=== PATIENT | female | born 1935 | race Caucasian/White ===

== ENCOUNTER 2020-10-01 14:06 | Inpatient (IN) | payer MEDICARE, OTHER, SELFPAY ==
[2020-10-01] VITALS (8 sets, daily range): BP systolic 106–127; BP diastolic 16–79; PULSE 100–112; RESP 15–31; TEMP 36.2–37; O2SAT 90–95; BMI 22.2
--- NOTE | 2020-10-01 14:53 | ECG_ITS ---
Test Reason : SOB Blood Pressure : / mmHG Vent. Rate : 112 BPM Atrial Rate : 112 BPM P-R Int : 138 ms QRS Dur : 082 ms QT Int : 312 ms P-R-T Axes : 040 268 004 degrees QTc Int : 425 ms Sinus tachycardia with Premature supraventricular complexes Left atrial enlargement Right superior axis deviation Pulmonary disease pattern Abnormal ECG No previous ECGs available Referred By: Mihaela Sutherland Electronically Signed By:LILIA MARLOW MD
--- NOTE | 2020-10-01 14:53 | CT_ITS ---
EXAMINATION: CT CHEST WITHOUT CONTRAST CLINICAL INFORMATION: Cough COMPARISON: None TECHNIQUE: Multidetector volumetric CT imaging of the chest was done. Axial MIP volume rendering provided. Sagittal and coronal reformatted images were obtained. This CT examination was performed using dose optimization techniques as appropriate, variously including the following: *Automated exposure control *Adjustment of mA and/or kV according to patient size (this includes techniques or standardized protocols for targeted exams where dose is matched to indication/reason for exam; i.e. extremities or head) *Use of iterative reconstruction technique DLP: 274 mGy-cm FINDINGS: RN TELE: Low lung volumes lung disease. Curvature of the thoracic spine to the right. LUNGS: The lung volumes are low. There is evidence of peripheral interstitial lung disease with increased peripheral reticulation, traction bronchiolectasis, and honeycombing. This is seen diffusely throughout the lungs but greatest at the lung bases, right greater than left. There are multiple areas of denser peripheral consolidation with airspace disease and air bronchograms. It is uncertain whether this represents acute alveolitis represent superimposed pneumonia. There are also multiple nodular opacities seen, greatest in the right upper lobe. Largest right upper lobe areas measure 1.2 x 1.5 cm in the apical segment axial image 94 series 5 and 1.3 cm axial image 132 series 5. There is a nodular opacity in the posterior left lower lobe measuring 1.2 cm axial image 179 series 5. Again, it is uncertain whether this is related to acute alveolitis represent superimposed pneumonia or neoplasm. Chest CT follow-up in pulmonary consultation recommended. No endobronchial or endotracheal lesion is seen. MEDIASTINUM: The heart is slightly enlarged. There is mild coronary artery calcification. There is no pericardial effusion. The pulmonary arteries are prominent. The main pulmonary artery measures 3.5 cm questionable for pulmonary artery hypertension. The thoracic aorta is upper normal in size. There are small diffuse mediastinal lymph nodes. No enlarged lymph nodes are seen. PLEURA: There is no pleural effusion. No pleural mass or thickening. AXILLA: No lymphadenopathy. UPPER ABDOMEN: There is diverticulosis of the colon. The gallbladder appears contracted. OSSEOUS STRUCTURES: There are degenerative changes and scoliosis of the spine. CT/CT chest wo con IMPRESSION: Interstitial lung disease. Multiple areas of dense parenchymal consolidation with air bronchograms. It is uncertain whether this is related to acute alveolitis from interstitial lung disease or represents pneumonia. There are also multiple nodular opacities greatest in the right upper lobe and left lower lobe. Infectious and neoplastic process be considered. Chest CT follow up and pulmonary consultation recommended. Enlarged heart. Enlarged pulmonary arteries suggestive of pulmonary artery hypertension.
--- NOTE | 2020-10-01 14:56 | ED.SOB ---
HPI - SOB/Dyspnea General Chief Complaint: Dyspnea Stated Complaint: Difficulty Breathing Time Seen by Provider: 10/01/20 14:53 Source: patient, EMS and RN notes reviewed Mode of arrival: EMS Limitations: no limitations History of Present Illness MD elicited complaint: shortness of breath Pertinent past history: other (pulmonary fibrosis) Onset (ago): day(s) (3) Context: other (has been on doxycycline and levofloxacin for the past several days, taking 10mg prednisone, just had negative COVID in last couple of days) Timing: constant Severity: moderate Exacerbating factors: exertion, movement and coughing Relieving factors: oxygen, rest and bronchodilators Known history of: other (pulmonary fibrosis) Associated symptoms: cough, wheezing and sputum production Treatment prior to arrival: oxygen and bronchodilator Related Data Home Medications Medication Instructions Recorded Confirmed guaifenesin [Mucinex] 1,200 mg PO BID 10/01/20 10/01/20 lactobacillus combination no.4 3,000 mmu cells PO BID 10/01/20 10/01/20 [Probiotic] rzukliqdpklc-yfz-febz-FA-vit K 1 tab PO DAILY 10/01/20 10/01/20 [Multi-Day Plus Minerals] pantoprazole [Protonix] 20 mg PO DAILY 10/01/20 10/01/20 polyethylene glycol 3350 [Miralax] 17 g PO DAILY PRN 10/01/20 10/01/20 prednisone 10 mg PO DAILY 10/01/20 10/01/20 vit C,D-Rv-vorvf-lutein-zeaxan 1 tab PO BID 10/01/20 10/01/20 [PreserVision AREDS-2] Allergies Allergy/AdvReac Type Severity Reaction Status Date / Time Penicillins Allergy Rash Verified 10/01/20 14:47 Review of Systems Review of Systems: Constitutional : No Fever, No Chills ENT/Mouth : No sore throat, No Rhinorrhea, No Swallowing Difficulty Eyes: No Eye Pain, No Swelling, No Redness Cardiovascular : No Chest Pain, positive SOB, No Orthopnea, no Edema Respiratory : pos Cough, pos Sputum, No Wheezing, positive dyspnea Gastrointestinal : No Nausea, No Vomiting, No Diarrhea, No abdominal Pain, No Hematochezia, No Melena Genitourinary : No Dysuria, No Urinary Frequency, No Hematuria Musculoskeletal : No joint pain, No Myalgias Skin : No Skin Lesions, No rash Neuro : No Weakness, No Numbness, No Dizziness, No Headache Psych : No Anxiety/Panic, No Depression Heme/Lymph: No Bruising, No Lymphadenopathy Endocrine : No Polyuria, No Polydipsia All other systems reviewed and are negative [facility] Past Medical History Attestation statement: The following information was validated with the patient. Medical History Pneumonia Pulmonary fibrosis Social History Social History (Updated 10/01/20 @ 15:06 by Mihaela Sutherland DO) Alcohol intake: current Alcohol intake frequency: holidays/special occasions only Smoking Status: Never smoker Use of substances other than those prescribed or required for medical reasons: No Advance Directives: No Advance Directives Information Provided: Yes Physical Exam Vital Signs: Vital Signs: Last Vital Signs Temp 97.8 F 10/01/20 16:00 Pulse 112 H 10/01/20 16:00 Resp 24 H 10/01/20 16:00 BP 127/79 10/01/20 16:00 Pulse Ox 91 L 10/01/20 16:00 Body Mass Index 22.2 Appearance: Alert. Oriented X3. Mild acute distress. Eyes: Pupils equal, round and reactive to light. ENT: Pharynx normal. Neck: Normal inspection. Neck supple. CVS: tachycardic heart rate and rhythm. Pulses normal. Respiratory: Mild respiratory distress. Breath sounds decreased, rhonchi, faint end exp wheezes Abdomen: Soft and nontender. Skin: Skin warm and dry. Normal skin color. Normal skin turgor. Extremities: No lower extremity edema. No calf ttp Neuro: Oriented X 3. No motor deficit. No sensory deficit. Course Course Course Narrative: signed out to Dr. Jj pending workup and labs MDM - SOB/Dyspnea MDM Narrative Medical decision making narrative: 84 yo female pulmonary fibrosis here with worsening cough and dyspnea - has been on steroids/doxy/levofloxacin - sats 88% on 5L she is normally on 3L NC - will give neb, IV steroids, CXR, empiric antibiotics COVID test though negative just in past couple of days, anticipate admission given RR in 30s, increased O2 requirements. Lab Data Result diagrams: 10/01/20 15:37 10/01/20 15:37 Labs: Lab Results 10/01/20 10/01/20 Range/Units 15:37 15:37 WBC 9.8 (4.8-10.8) X10*3/uL RBC 4.85 (4.20-5.50) X10*6/uL Hgb 13.6 (12.0-16.0) g/dl Hct 43.9 (37-47) % MCV 90.5 (80-98) fL MCH 28.0 (27.0-33.0) pg MCHC 31.0 (31.0-35.0) g/dl RDW 14.4 (11.0-16.0) % Plt Count 334 (160-400) X10*3/uL MPV 9.7 (9.4-12.3) fL Immature Gran % (Auto) 0.6 H (0.0-0.4) % Neut % (Auto) 82.2 H (45-73) % Lymph % (Auto) 11.0 L (20-40) % [place] % (Auto) 5.0 (2-11) % Eos % (Auto) 0.6 (0-4) % Baso % (Auto) 0.6 (0-2) % Lymph # (Auto) 1.1 L (1.2-4.9) X10*3/uL [place] # (Auto) 0.5 (0.1-1.2) X10*3/uL Eos # (Auto) 0.1 (0.0-0.4) X10*3/uL Baso # (Auto) 0.1 (0.0-0.2) X10*3/uL Abs Immat Gran (auto) 0.06 H (0.00-0.03) X10*3/uL Absolute Neuts (auto) 8.1 (2.0-8.3) X10*3/uL Absolute Nucleated RBC 0.000 (0.0-0.012) X10*3/uL Nucleated RBC % (auto) 0.0 (0.0-0.2) /100WBC PT 11.5 (10.8-13.0) SEC INR 1.0 (0.9-1.1) APTT 39.0 H (24.1-38.0) SEC ECG Data Attestation: I personally reviewed and interpreted this ECG as follows: ECG interpretation date: 10/01/20 ECG interpretation time: 15:24 Interpretation: Rate: 112 Rhythm: sinus tachycardia Onia: left Normal POLLY. Normal QRS complex. ST T wave : no MERLY, inverted III, aVF qTC: normal prior studies: no acute ischemia The study has been interpreted contemporaneously by me. . Discharge Plan Discharge Clinical Impression: Pulmonary fibrosis Pneumonia Qualifiers: Pneumonia type: due to unspecified organism Laterality: bilateral Lung location: unspecified part of lung Qualified Code(s): J18.9 - Pneumonia, unspecified organism Patient Disposition: Admitted As Inpatient
[2020-10-01] MEDS: Albuterol Sulfate (0.083%) 2.5 MG/3 ML VIAL.NEB 5 MG INHALE (15:31)
[2020-10-01 15:48] LABS: MANUAL DIFF FLAG NO
[2020-10-01 15:49] LABS: Basophils Absolute Auto 0.1 X10*3/uL (0.0-0.2); Basophils Percent Auto 0.6 % (0-2); Eosinophils Absolute Auto 0.1 X10*3/uL (0.0-0.4); Eosinophils Percent Auto 0.6 % (0-4); Hematocrit 43.9 % (37-47); Hemoglobin 13.6 g/dl (12.0-16.0); Imm Gran Abs Auto 0.06 X10*3/uL (0.00-0.03); Imm Gran Pct Auto 0.6 % (0.0-0.4); Lymphocytes Absolute Auto 1.1 X10*3/uL (1.2-4.9); Mean Corpuscular Volume 90.5 fL (80-98); Mean Platelet Volume 9.7 fL (9.4-12.3); Monocytes Absolute Auto 0.5 X10*3/uL (0.1-1.2); Neutrophils Absolute Auto 8.1 X10*3/uL (2.0-8.3); Neutrophils Percent Auto 82.2 % (45-73); Platelet Count 334 X10*3/uL (160-400); Red Blood Count 4.85 X10*6/uL (4.20-5.50); Red Cell Distribution Width 14.4 % (11.0-16.0); White Blood Count 9.8 X10*3/uL (4.8-10.8)
[2020-10-01] MEDS: methylPREDNISolone Sod Succ/PF 125 MG/2 ML VIAL 60 MG IVPUSH (15:49)
[2020-10-01] MEDS: cefEPime HCl 1 GM in 0.9 % Sodium Chloride 50 ML IV (16:00)
[2020-10-01 16:06] LABS: Prothrombin Time 11.5 SEC (10.8-13.0)
--- NOTE | 2020-10-01 16:14 | PC.NURSE ---
Pt with fine crackles and wheezing on arrival to ED. Hx pulmonary fibrosis on 4liters at home. Sats in low 90s. Sats noted to drop with coughing episodes but return to above 90 when restful. Pt recd updraft inhaler with relief. CT and labs obtained. Awaiting results at this time. Pt likely to be admitted per MD. The patient was made aware and her medication list sent to pharmacy.
[2020-10-01 16:15] LABS: Lactic Acid 1.6 mmol/L (0.5-2.0)
[2020-10-01 16:23] LABS: Alanine Aminotransferase 172 U/L (0-31); Albumin Level 3.5 g/dL (3.5-5.0); Alkaline Phosphatase 115 U/L (39-117); Anion Gap 13 (12-20); Aspartate Amino Transferase 40 U/L (5-31); Bilirubin Direct 0.2 mg/dL (0.0-0.5); Bilirubin Total 0.3 mg/dL (0.0-1.0); Blood Urea Nitrogen 16 mg/dL (9-16); Calcium 8.6 mg/dL (8.4-10.2); Carbon Dioxide 33 mmol/L (22-29); Chloride 95 mmol/L (96-108); Creatinine Clr Calc Pharmacy 63.8; Estimated Glomerular Filt Rate > 60; Glucose Random 214 mg/dL (60-115); Lactate Dehydrogenase 218 U/L (122-220); Lipase 37 U/L (8-78); Magnesium 1.9 mg/dL (1.6-2.6); Potassium 4.5 mmol/l (3.3-5.1); Sodium 136 mmol/L (135-145)
[2020-10-01 16:25] LABS: B Type Natriuretic Peptide 282 pg/mL (<100); Troponin-I High Sensitivity 12.7 ng/L (<3.5-17.0)
[2020-10-01 16:32] LABS: Influenza A PCR NEGATIVE (Negative); Influenza B PCR NEGATIVE (Negative); Resp Syncy Virus RNA Qual PCR NEGATIVE (Negative); SARS COV2 PCR INHOUSE NEGATIVE (Negative)
[2020-10-01] MEDS: Doxycycline Hyclate 100 MG in 0.9 % Sodium Chloride 250 ML 166.67 MG IV (16:32)
[2020-10-01 16:40] LABS: Ferritin 56 ng/mL (10-250)
[2020-10-01 16:45] LABS: Procalcitonin 0.03 ng/mL
--- NOTE | 2020-10-01 18:36 | PC.NURSE ---
see at bedside about 45 minutes ago. Awaiting admission order. notified at this time.
--- NOTE | 2020-10-01 19:17 | PC.NURSE ---
report taken from racquel donaldson. buttocks reddend upon skin assessment. barrier cream applied. position changed. daughter racquel updated on condition. phone number changed to accurately reflect current phone number in chart. awaiting admission orders at this time.
--- NOTE | 2020-10-01 21:07 | PC.NURSE ---
attempted to give report. rn unavailable and in room.
[2020-10-02] MEDS: Enoxaparin Sodium 40 MG/0.4 ML SYRINGE SUBCUT ×2 (00:11→23:29)
[2020-10-02] MEDS: cefTRIAXone sodium 1 GM in 0.9 % Sodium Chloride 50 ML IV ×2 (00:12→23:29)
[2020-10-02] MEDS: Azithromycin 500 MG in 0.9 % Sodium Chloride 250 ML 125 MG IV (00:12)
[2020-10-02] MEDS: Gabapentin 100 MG CAPSULE PO ×2 (00:12→20:21)
[2020-10-02] MEDS: Melatonin 3 MG TABLET PO ×2 (00:12→20:23)
[2020-10-02] MEDS: 0.9 % Sodium Chloride Flush 3 ML SYRINGE IVFLUSH ×2 (00:13→17:23)
[2020-10-02 03:47] VITALS: BP 103/56; PULSE 88; RESP 18; TEMP 36.4; O2SAT 96
[2020-10-02 04:35] LABS: Basophils Absolute Auto 0.1 X10*3/uL (0.0-0.2); Basophils Percent Auto 0.6 % (0-2); Eosinophils Percent Auto 0.1 % (0-4); Hematocrit 39.6 % (37-47); Hemoglobin 12.4 g/dl (12.0-16.0); Imm Gran Abs Auto 0.06 X10*3/uL (0.00-0.03); Imm Gran Pct Auto 0.7 % (0.0-0.4); Lymphocytes Absolute Auto 1.4 X10*3/uL (1.2-4.9); Lymphocytes Percent Auto 15.3 % (20-40); Mean Corpuscular HGB Conc 31.3 g/dl (31.0-35.0); Mean Corpuscular Hemoglobin 28.6 pg (27.0-33.0); Mean Corpuscular Volume 91.2 fL (80-98); Mean Platelet Volume 9.6 fL (9.4-12.3); Monocytes Absolute Auto 0.8 X10*3/uL (0.1-1.2); Monocytes Percent Auto 8.4 % (2-11); Neutrophils Absolute Auto 6.8 X10*3/uL (2.0-8.3); Neutrophils Percent Auto 74.9 % (45-73); Platelet Count 282 X10*3/uL (160-400); Red Blood Count 4.34 X10*6/uL (4.20-5.50); Red Cell Distribution Width 14.2 % (11.0-16.0); White Blood Count 9.1 X10*3/uL (4.8-10.8)
[2020-10-02 04:36] LABS: MANUAL DIFF FLAG NO
[2020-10-02 04:58] LABS: Anion Gap 12 (12-20); Blood Urea Nitrogen 17 mg/dL (9-16); Calcium 8.3 mg/dL (8.4-10.2); Carbon Dioxide 29 mmol/L (22-29); Chloride 101 mmol/L (96-108); Creatinine Clr Calc Pharmacy 75.3; Estimated Glomerular Filt Rate > 60; Glucose Random 114 mg/dL (60-115); Sodium 137 mmol/L (135-145)
--- NOTE | 2020-10-02 06:12 | P.HPHOSP_ITS ---
History of Present Illness Date of Service: 10/01/20 Chief Complaint: Shortness of breath This an 84-year-old female with a past medical history of I will D on baseline 4 L of oxygen who presents to the hospital from [facility] with complaints of sudden-onset shortness of breath. Patient reports some cough with no increased sputum production from her baseline, has not had any fever or chills, no abdominal pain nausea or vomiting, no diarrhea constipation. She denies any other symptoms including no urinary symptoms weakness numbness or tingling. No lower extremity edema. No orthopnea or PND. On arrival to the ED found to be desatting to the mid 80s on minimal activity, placed on 6 L of oxygen currently satting at 92-96%. Has tachycardia with a heart rate of 108 and tachypneic with a respiratory rate of 31 Labs are significant for WBC count of 9.8, hemoglobin of 12.4, hematocrit of 39.6, sodium of 137, potassium 5.0, BUN of 17 with creatinine of 0.55, BNP of 282, negative COVID-19, Chest CT shows interstitial lung disease with multiple areas of dense parenchymal consolidation with air bronchogram. And multiple nodular opacities which could be infectious versus neoplastic and will need follow-up CT Past medical history: Interstitial lung disease/fibrosis Surgical history: eye surgery Family history: Was adopted Social history: Comes from [facility], denies any tobacco alcohol or illicit drugs Review of Systems Review of Systems: Yes all other systems are reviewed and are negative [facility] Medical History Pneumonia Pulmonary fibrosis Social History (Updated 10/01/20 @ 15:06 by Mihaela Sutherland DO) Household Members: None Housing: [facility] Do you presently have visiting nurse or other home services: No Alcohol intake: current Alcohol intake frequency: holidays/special occasions only Smoking Status: Never smoker Use of substances other than those prescribed or required for medical reasons: No Have you been hit, kicked, punched, or otherwise hurt by someone within the past year? If so, by whom?: No Do you feel safe in your current relationship?: No Current Relationship Is there a partner from a previous relationship who is making you feel unsafe now?: No Are you made to feel afraid or neglected: No Advance Directives: No Advance Directives Information Provided: Yes Do you have thoughts of harming others: None Do you have a plan to hurt others: No Plan Recently lost weight without trying: No Meds Allergies Allergy/AdvReac Type Severity Reaction Status Date / Time Penicillins Allergy Rash Verified 10/01/20 14:47 Home Medications Medication Instructions Recorded Confirmed Type brimonidine [Alphagan P] 1 drp OPHTHALMIC-RIGHT BID 10/01/20 10/01/20 History difluprednate [Durezol] 1 drp OPHTHALMIC-LEFT QID 10/01/20 10/01/20 History doxycycline hyclate 100 mg PO BID 10/01/20 10/01/20 History fluticasone propionate [Flonase] 1 spray INTRANASAL DAILY 10/01/20 10/01/20 History gabapentin 100 mg PO BEDTIME 10/01/20 10/01/20 History guaifenesin [Mucinex] 1,200 mg PO BID 10/01/20 10/01/20 History lactobacillus combination no.4 3,000 mmu cells PO BID 10/01/20 10/01/20 History [Probiotic] melatonin 3 mg PO BEDTIME 10/01/20 10/01/20 History melatonin 3 mg PO BEDTIME PRN 10/01/20 10/01/20 History mirtazapine [Remeron] 30 mg PO DAILY 10/01/20 10/01/20 History qdtaatzefjbq-mny-qmgo-FA-vit K 1 tab PO DAILY 10/01/20 10/01/20 History [Multi-Day Plus Minerals] netarsudil-latanoprost [Rocklatan] 1 drp OPHTHALMIC-RIGHT BEDTIME 10/01/20 10/01/20 History pantoprazole [Protonix] 20 mg PO DAILY 10/01/20 10/01/20 History polyethylene glycol 3350 [Miralax] 17 g PO DAILY PRN 10/01/20 10/01/20 History prednisone 10 mg PO DAILY 10/01/20 10/01/20 History simethicone 80 mg PO BID PRN 10/01/20 10/01/20 History timolol 1 drp OPHTHALMIC-RIGHT BID 10/01/20 10/01/20 History trazodone 50 mg PO BEDTIME PRN 10/01/20 10/01/20 History vit C,H-Gd-rvdkz-lutein-zeaxan 1 tab PO BID 10/01/20 10/01/20 History [PreserVision AREDS-2] Physical Exam Vital Signs and Narrative: Vital Signs: Last Vital Signs Temp 97.5 F 10/02/20 03:47 Pulse 88 10/02/20 03:47 Resp 18 10/02/20 03:47 BP 103/56 L 10/02/20 03:47 Pulse Ox 96 10/02/20 03:47 Body Mass Index 22.2 Const: General: cooperative and no acute distress Orientation/consciousness: patient oriented x3 Eyes: General: appearance normal, both eyes and all related structures Resp: Effort & Inspection: normal respiratory effort and able to speak in complete sentences Auscultation: crackles Cardio: Rate: regular rate Rhythm: regular rhythm GI: Palpation (GI): Soft to palpation Auscultation: normal bowel sounds Skin: General skin exam: no rashes or lesions noted Neuro: General: patient oriented x3 Cognition (Neuro): normal cognition Extrem: General: Yes normal to inspection and Yes no pedal edema Results Labs CBC and Chem 7: 10/02/20 04:18 10/02/20 04:18 Labs: Laboratory Results - last 24 hr 10/01/20 10/01/20 10/01/20 15:37 15:37 15:37 MCV 90.5 MCH 28.0 MCHC 31.0 RDW 14.4 Plt Count 334 MPV 9.7 Immature Gran % (Auto) 0.6 H Neut % (Auto) 82.2 H Lymph % (Auto) 11.0 L [place] % (Auto) 5.0 Eos % (Auto) 0.6 Baso % (Auto) 0.6 Lymph # (Auto) 1.1 L [place] # (Auto) 0.5 Eos # (Auto) 0.1 Baso # (Auto) 0.1 Abs Immat Gran (auto) 0.06 H Absolute Neuts (auto) 8.1 Absolute Nucleated RBC 0.000 Nucleated RBC % (auto) 0.0 PT INR APTT Anion Gap 13 Estim Creat Clear Calc 63.8 Estimated GFR > 60 Random Glucose 214 H Lactic Acid 1.6 Calcium 8.6 Magnesium 1.9 Ferritin 56 Total Bilirubin 0.3 Direct Bilirubin 0.2 AST 40 H ALT 172 H Alkaline Phosphatase 115 Lactate Dehydrogenase 218 Troponin I High Sens B-Natriuretic Peptide Total Protein 6.0 L Albumin 3.5 Lipase 37 Procalcitonin Coronavirus (PCR) Influenza Type A (PCR) Influenza Type B (PCR) RSV RNA Qual (PCR) 10/01/20 10/01/20 10/01/20 15:37 15:37 15:37 MCV MCH MCHC RDW Plt Count MPV Immature Gran % (Auto) Neut % (Auto) Lymph % (Auto) [place] % (Auto) Eos % (Auto) Baso % (Auto) Lymph # (Auto) [place] # (Auto) Eos # (Auto) Baso # (Auto) Abs Immat Gran (auto) Absolute Neuts (auto) Absolute Nucleated RBC Nucleated RBC % (auto) PT 11.5 INR 1.0 APTT 39.0 H Anion Gap Estim Creat Clear Calc Estimated GFR Random Glucose Lactic Acid Calcium Magnesium Ferritin Total Bilirubin Direct Bilirubin AST ALT Alkaline Phosphatase Lactate Dehydrogenase Troponin I High Sens 12.7 B-Natriuretic Peptide 282 H Total Protein Albumin Lipase Procalcitonin 0.03 Coronavirus (PCR) Influenza Type A (PCR) Influenza Type B (PCR) RSV RNA Qual (PCR) 10/01/20 10/02/20 10/02/20 Unknown 04:18 04:18 MCV 91.2 MCH 28.6 MCHC 31.3 RDW 14.2 Plt Count 282 MPV 9.6 Immature Gran % (Auto) 0.7 H Neut % (Auto) 74.9 H Lymph % (Auto) 15.3 L [place] % (Auto) 8.4 Eos % (Auto) 0.1 Baso % (Auto) 0.6 Lymph # (Auto) 1.4 [place] # (Auto) 0.8 Eos # (Auto) 0.0 Baso # (Auto) 0.1 Abs Immat Gran (auto) 0.06 H Absolute Neuts (auto) 6.8 Absolute Nucleated RBC 0.000 Nucleated RBC % (auto) 0.0 PT INR APTT Anion Gap 12 Estim Creat Clear Calc 75.3 Estimated GFR > 60 Random Glucose 114 D Lactic Acid Calcium 8.3 L Magnesium Ferritin Total Bilirubin Direct Bilirubin AST ALT Alkaline Phosphatase Lactate Dehydrogenase Troponin I High Sens B-Natriuretic Peptide Total Protein Albumin Lipase Procalcitonin Coronavirus (PCR) NEGATIVE Influenza Type A (PCR) NEGATIVE Influenza Type B (PCR) NEGATIVE RSV RNA Qual (PCR) NEGATIVE Imaging Radiologist's Impressions: Impressions Chest CT 10/01/20 14:53 IMPRESSION: Interstitial lung disease. Multiple areas of dense parenchymal consolidation with air bronchograms. It is uncertain whether this is related to acute alveolitis from interstitial lung disease or represents pneumonia. There are also multiple nodular opacities greatest in the right upper lobe and left lower lobe. Infectious and neoplastic process be considered. Chest CT follow up and pulmonary consultation recommended. Enlarged heart. Enlarged pulmonary arteries suggestive of pulmonary artery hypertension. Assessment and Plan (1) Respiratory failure with hypoxia: Status: Acute (2) Pneumonia: Qualifiers: Laterality: bilateral Lung location: unspecified part of lung Pneumonia type: due to unspecified organism Qualified Code(s): J18.9 - Pneumonia, unspecified organism Status: Acute (3) Pulmonary fibrosis: Status: Acute This is a 84-year-old female with past medical history of LD who presents to the hospital with complaints of acute on chronic shortness of breath # acute on chronic hypoxic respiratory failure - most likely secondary to community-acquired pneumonia - patient on baseline 4 L of oxygen not requiring 6 L to maintain oxygen above 91% - chest CT as above Plan: - negative for COVID-19, influenza and RSV - titrate down O2 to baseline as tolerated # community-acquired pneumonia - Chest CT showing multiple infiltrates w hx of underlying lung ds Plan: - IV antibiotics - follow blood cultures - Legionella and strep urine antigens # Pulmonary fiborsis DVT prophylaxis: Lovenox
[2020-10-02 07:31] VITALS: BP 120/61; PULSE 87; RESP 18; TEMP 36.6; O2SAT 93
[2020-10-02] MEDS: predniSONE 10 MG TABLET PO (08:39)
[2020-10-02] MEDS: timoloL maleate 0.5 % Oph Sol 5 ML DRBTL 1 DROP EYE-BOTH ×2 (08:40→20:23)
[2020-10-02] MEDS: Fluticasone Propionate Nasal 16 GM SPRAY 1 SPRAY NOSTRIL-B (08:40)
--- NOTE | 2020-10-02 10:33 | PC.NURSE ---
Plan for pt to see associate merchandise planner. Pt aware of daily plan.
--- NOTE | 2020-10-02 11:01 | MHC.CM.PN ---
Addendum entered by Lyndsey Bauer 10/02/20 11:06: IMM addressed. Original Note: CM met with patient at the bedside who reports she amb with a walker and resides at [facility]. Patient states she has a HCP kalpana Sanders [phone], copy requested. Discussed discharge plan, patient will return to [facility] via BLS transport. CM will continue to follow for discharge needs.
[2020-10-02] MEDS: Simethicone 80 MG TAB.CHEW PO (11:57)
[2020-10-02 12:00] VITALS: BP 152/86; PULSE 102; RESP 20; TEMP 36.8; O2SAT 90
--- NOTE | 2020-10-02 13:41 | PM.EVENT ---
Event Note Date of Service: 10/02/20 Event Note: I HAVE SEEN THIS PATIENT FOR PULMONARY CONSULTATION. HER HISTORY AND CURRENT EVENTS ARE REVIEWED. LAB AND IMAGING REVIEWED. COVID-19 TEST IS NOTED TO BE NEGATIVE. COMPLETE NOTE DICTATED. A: CHRONIC INTERSTITIAL LUNG DISEASE/PULMONARY FIBROSIS. ACUTE PNEUMONIA VS SUPER ADDED INTERSTITIAL PNEUMONITIS. ACUTE ON CHRONIC RESPIRATORY FAILURE WITH INCREASED HYPOXEMIA. p: START ON SOLU-MEDROL 60 MG IV B.I.D. FOR THE NEXT FEW DAYS AND THEN WOULD BE CHANGED TO ORAL PREDNISONE. COURSE OF ANTIBIOTICS, EMPIRICALLY, WITH AZITHROMYCIN AND CEFTRIAXONE IS FINE . O2 SUPPLEMENTATION BY NASAL CANNULA TO MAINTAIN O2 SAT ABOVE 90%. IF NEEDED MAY ADD OXYMIZER.
--- NOTE | 2020-10-02 15:53 | CONS_ITS ---
DATE OF SERVICE: 10/02/2020 This patient is 84 years old very pleasant female who was admitted from [facility] rehab facility with chief complaint of increased shortness of breath with almost sudden increase on 10/01. She had no fever or chills. She had her usual cough, nonproductive. She was on oxygen 4 L/minute as usual. In the emergency room, she was noted to be desaturating down into mid 80s even with oxygen of 6 L/minute. She was tachycardiac and tachypneic. Laboratory data revealed that her white cell count was normal. BUN and creatinine normal. BNP 282, and her rapid COVID-[address] scan of the chest was grossly abnormal. The patient is admitted for further care in the hospital. PAST MEDICAL HISTORY: Reviewed. She has long-standing history of interstitial lung disease/pulmonary fibrosis. She has been on maintenance dose of prednisone at 10 mg a day and she is also on oxygen 4 L/minute continuously. The patient has been followed up by a director of rooms at [facility]. REVIEW OF SYSTEMS: As noted in the history and physical. Her main problem is increased shortness of breath and marked generalized weakness. She denies any chest pain, fever, or chills. Her appetite is poor, but no nausea or vomiting. SOCIAL HISTORY: History of smoking, the patient never smoked. 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 She is in a long-term facility, [facility] for the past few years. PHYSICAL EXAMINATION: GENERAL: An 84-year-old female of a thin build, conscious, alert, and well orientated and she did converse with some obvious dyspnea. THROAT: Benign. NECK: No JVD. Trachea midline. No lymphadenopathy. CHEST: Symmetrical. Percussion note is resonant. Breath sounds are harsh on both sides and she has inspiratory as well as expiratory crepitations over the upper as well as lower chest. CARDIAC: Sounds are muffled by the respiratory sounds, but no murmurs or gallops. ABDOMEN: Flat, soft, and nontender. EXTREMITIES: No edema or varicosities. CT scan of the chest is reviewed and it shows extensive bilateral interstitial lung disease with dense opacities consistent with consolidation and air bronchogram. Currently, her O2 saturation on 4 L/minute is 96. CLINICAL IMPRESSION: 1. Bilateral extensive pneumonitis, acute on chronic. 2. Chronic interstitial lung disease/pulmonary fibrosis. 3. Possibility of an acute infectious disease cannot be ruled out, but seem to be less likely. 4. As noted above, her COVID test is negative. RECOMMENDATION: 1. Agree with the current treatment and I think she should have a short course of IV Solu-Medrol at 60 mg IV q.12 hours. Continue the combination of Rocephin and azithromycin for the time being. 2. Oxygen supplementation as needed. 3. We will repeat her chest x-ray in a few days for followup. 4. Long-term goal is going to be oxygenate her well and keep the interstitial lung disease under control with oral prednisone. Thank you very much for asking me to see this patient. Sincerely, MD CATALINA Diaz/MODL / [id number]
[2020-10-02 16:00] VITALS: BP 141/97; PULSE 99; RESP 18; TEMP 36.4; O2SAT 94
--- NOTE | 2020-10-02 16:18 | P.PNIM_ITS ---
Subjective Subjective Date of Service: 10/03/20 Interval History: patient seen and examined at bedside patient was reporting shortness of breath Review of Systems Constitutional : No Fever, No Chills ENT/Mouth : No sore throat, No Rhinorrhea, No Swallowing Difficulty Eyes: No Eye Pain, No Swelling, No Redness Cardiovascular : No Chest Pain, positive SOB, No Orthopnea, no Edema Respiratory : pos Cough, pos Sputum, No Wheezing, positive dyspnea Gastrointestinal : No Nausea, No Vomiting, No Diarrhea, No abdominal Pain, No Hematochezia, No Melena Genitourinary : No Dysuria, No Urinary Frequency, No Hematuria Musculoskeletal : No joint pain, No Myalgias Skin : No Skin Lesions, No rash Neuro : No Weakness, No Numbness, No Dizziness, No Headache Psych : No Anxiety/Panic, No Depression Heme/Lymph: No Bruising, No Lymphadenopathy Endocrine : No Polyuria, No Polydipsia All other systems reviewed and are negative Constitutional Constitutional: Reports weakness Cardiovascular Cardiovascular: Reports dyspnea Respiratory Respiratory: Reports cough and Reports dyspnea Neurologic Neurologic: Reports weakness Physical Exam Vital Signs: Vital Signs: Last Vital Signs Temp 97.6 F 10/02/20 16:00 Pulse 99 10/02/20 16:00 Resp 18 10/02/20 16:00 BP 141/97 H 10/02/20 16:00 Pulse Ox 94 10/02/20 16:00 Body Mass Index 22.2 Const: General: cooperative and no acute distress Orientation/consciousness : patient oriented x3 Eyes: General: appearance normal, both eyes and all related structures Resp: Effort & Inspection: normal respiratory effort and able to speak in complete sentences Auscultation: crackles Cardio: Rate: regular rate Rhythm: regular rhythm GI: Palpation (GI): Soft to palpation Auscultation: normal bowel sounds Skin: General skin exam: no rashes or lesions noted Neuro: General: patient oriented x3 Cognition (Neuro): normal cognition Extrem: General: Yes normal to inspection and Yes no pedal edema Objective Data Current Medications Generic Name Dose Route Start Last Admin Trade Name Freq PRN Reason Stop Dose Admin Acetaminophen 650 mg 10/01/20 22:03 Acetaminophen 325 Mg Tablet PO Q6H PRN Pain, Mild (Pain Scale 1-3) Docusate Sodium 100 mg 10/01/20 22:03 Docusate Sodium 100 Mg Capsule PO DAILY PRN Constipation Enoxaparin Sodium 40 mg 10/01/20 23:00 10/02/20 00:11 Enoxaparin Sodium 40 Mg/0.4 Ml Syringe SUBCUT 40 mg Q24H LAURI Administration Fluticasone Propionate 1 spray 10/02/20 09:00 10/02/20 08:40 Fluticasone Propionate Nasal 16 Gm [place] NOSTRIL-B 1 spray DAILY LAURI Administration Gabapentin 100 mg 10/01/20 22:03 10/02/20 00:12 Gabapentin 100 Mg Capsule PO 100 mg BEDTIME LAURI Administration Ceftriaxone Sodium 1 gm/ 50 mls @ 100 mls/hr 10/01/20 22:03 10/02/20 01:03 Sodium Chloride IV Infused Q24H LAURI Infusion Azithromycin 500 mg/ Sodium 250 mls @ 125 mls/hr 10/01/20 23:00 10/02/20 02:18 Chloride IV Infused Q24H LAURI Infusion Melatonin 3 mg 10/01/20 22:03 Melatonin 3 Mg Tablet PO BEDTIME PRN IF FIRST DOSE NOT EFFECTIVE Melatonin 3 mg 10/01/20 22:03 10/02/20 00:12 Melatonin 3 Mg Tablet PO 3 mg BEDTIME LAURI Administration Mirtazapine 30 mg 10/02/20 21:00 Mirtazapine 30 Mg Tablet PO BEDTIME LAURI Non-Formulary Medication 1 drop 10/01/20 22:03 Brimonidine [Alphagan P] EYE-RIGHT BID [facility] Non-Formulary Medication 1 drop 10/01/20 22:03 Difluprednate [Durezol] EYE-LEFT QID [facility] Non-Formulary Medication 1 drop 10/01/20 22:03 Netarsudil-Latanoprost [Rocklatan] EYE-RIGHT BEDTIME LAURI Omeprazole 20 mg 10/02/20 06:30 10/02/20 05:36 Omeprazole 20 Mg Capsule.Dr PO Not Given DAILY@0630 [facility] Ondansetron HCl 4 mg 10/01/20 22:03 Ondansetron Hcl 4 Mg/2 Ml Vial IVPUSH Q8H PRN Nausea and Vomiting Pharmacy Consult 1 each 10/01/20 14:53 Consult Rx Perform Med Rec MISCELLANE ONCE PRN Consult order Polyethylene Glycol 17 gm 10/01/20 22:03 Polyethylene Glycol 3350 17 Gm Powd.Pack PO DAILY PRN Constipation Prednisone 10 mg 10/02/20 09:00 10/02/20 08:39 Prednisone 10 Mg Tablet PO 10 mg DAILY LAURI Administration Simethicone 80 mg 10/01/20 22:12 10/02/20 11:57 Simethicone 80 Mg Tab.Chew PO 80 mg BID PRN Administration GI UPSET Sodium Chloride 3 ml 10/02/20 00:00 10/02/20 07:57 0.9 % Sodium Chloride Flush 3 Ml Syringe IVFLUSH Not Given QSHIFT LAURI Timolol Maleate 1 drop 10/02/20 09:00 10/02/20 08:40 Timolol Maleate 0.5 % Oph Gregoria 5 Ml Drbtl EYE-BOTH 1 drop BID LAURI Administration Trazodone HCl 50 mg 10/01/20 22:03 Trazodone Hcl 50 Mg Tablet PO BEDTIME PRN IF MELATONIN NOT EFFECTIVE Labs CBC & Chem 7: 10/02/20 04:18 10/02/20 04:18 Assessment and Plan (1) Respiratory failure with hypoxia: Problem details: Increased Hypoxemia, now improving, cont . O2 2l/mt Status: Acute (2) Pneumonia: Problem details: Questionable , acute pneumonia . Cont. IV Zithromax and Rocephin . Status: Acute (3) Pulmonary fibrosis: Problem details: Chronic , with Acute superadded pneumonitis cont. iv solumedrol for one more day , then switch to oral prednisone Status: Acute Assessment and Plan: This is a 84-year-old female with past medical history of LD who presents to the hospital with complaints of acute on chronic shortness of breath acute on chronic hypoxic respiratory failure - most likely secondary to community-acquired pneumonia with Pulmonary fiborsis continue oxygen supplementation - negative for COVID-19, influenza and RSV community-acquired pneumonia - Chest CT showing multiple infiltrates w hx of underlying pulmonary fibrosis continue IV antibiotics - follow blood cultures seen by pulmonology recommended starting IV steroids given worsen for of pulmonary fibrosis DVT prophylaxis: Lovenox
[2020-10-02] MEDS: methylPREDNISolone Sod Succ/PF 125 MG/2 ML VIAL 60 MG IVPUSH (17:24)
[2020-10-02 19:19] VITALS: BP 119/67; PULSE 110; RESP 20; TEMP 36.6; O2SAT 91
[2020-10-02] MEDS: Mirtazapine 30 MG TABLET PO (23:29)
[2020-10-02] MEDS: Azithromycin 500 MG in 0.9 % Sodium Chloride 250 ML 250 MG IV (23:30)
[2020-10-03] VITALS (7 sets, daily range): BP systolic 97–161; BP diastolic 51–103; PULSE 87–116; RESP 18–20; TEMP 36.2–37.1; O2SAT 91–95
[2020-10-03] MEDS: 0.9 % Sodium Chloride Flush 3 ML SYRINGE IVFLUSH ×4 (01:12→21:39)
[2020-10-03] MEDS: Acetaminophen 325 MG TABLET 650 MG PO (01:25)
[2020-10-03] MEDS: Melatonin 3 MG TABLET PO ×2 (01:25→21:38)
[2020-10-03] MEDS: methylPREDNISolone Sod Succ/PF 125 MG/2 ML VIAL 60 MG IVPUSH ×2 (06:42→15:49)
[2020-10-03] MEDS: Omeprazole 20 MG CAPSULE.DR PO (06:43)
[2020-10-03] MEDS: timoloL maleate 0.5 % Oph Sol 5 ML DRBTL 1 DROP EYE-BOTH ×2 (09:39→21:39)
[2020-10-03] MEDS: Fluticasone Propionate Nasal 16 GM SPRAY 1 SPRAY NOSTRIL-B ×3 (09:39→21:38)
--- NOTE | 2020-10-03 12:23 | PM.PNPUL ---
Subjective Subjective Date of Service: 10/03/20 Principal diagnosis: Acute on Chronic ILD / Resp. failure Interval history: Patient is quite the alert, denies any respiratory distress, remains afebrile. Oxygenating well at 4 L/minute. Denies any specific complaints at this time Objective Data Labs CBC & Chem 7: 10/02/20 04:18 10/02/20 04:18 Microbiology Microbiology Results: Microbiology 10/01/20 15:53 Blood - Venous Blood Culture - Preliminary No growth after 24 hours. 10/01/20 15:54 Blood - Venous Blood Culture - Preliminary No growth after 24 hours. Review of Systems Review of Systems Yes all other systems are reviewed and are negative Constitutional: Reports weakness Cardiovascular: Reports dyspnea Respiratory: Reports cough and Reports dyspnea Reports weakness Physical Exam Vital Signs: Vital Signs: Last Vital Signs Temp 98.6 F 10/03/20 11:24 Pulse 91 10/03/20 11:24 Resp 18 10/03/20 11:24 BP 115/81 10/03/20 11:24 Pulse Ox 95 10/03/20 11:24 Body Mass Index 22.2 Const: General: comfortable, no acute distress and acute distress HENMT: Head: Yes normal to inspection General nose exam: Normal external nose present, Normal nares present and No nasal polyps present Mouth: Normal oral and palatal mucosa present Eyes: General: appearance normal, both eyes and all related structures Neck: Neck: Yes no lymphadenopathy, Yes trachea midline and Yes no JVD Chest: Chest palpation & inspection: normal inspection of the chest and normal palpation of entire chest wall Resp: Auscultation: crackles (Bilateral crackles, insp. and expiratory ) Cardio: Jugular venous distension: no JVD Rate: regular rate Heart sounds: no gallops and no murmurs Assessment and Plan Assessment and plan (1) Pulmonary fibrosis: Problem details: Chronic , with Acute superadded pneumonitis cont. iv solumedrol for one more day , then switch to oral prednisone Status: Acute (2) Respiratory failure with hypoxia: Problem details: Increased Hypoxemia, now improving, cont . O2 2l/mt Status: Acute (3) Pneumonia: Problem details: Questionable , acute pneumonia . Cont. IV Zithromax and Rocephin . Status: Acute Time Spent With Patient Time: Total time spent is greater than 50% in coordination of care (as documented) at patient's floor/unit and/or counseling patient: Time with patient: 25 - 35 minutes
--- NOTE | 2020-10-03 13:56 | MHC.CM.PN ---
DP RETURN TO [facility] VIA BLS
--- NOTE | 2020-10-03 15:07 | P.PNIM_ITS ---
Subjective Subjective Date of Service: 10/03/20 Interval History: patient seen and examined at bedside patient was reporting some improvement in shortness of breath Review of Systems Constitutional : No Fever, No Chills ENT/Mouth : No sore throat, No Rhinorrhea, No Swallowing Difficulty Eyes: No Eye Pain, No Swelling, No Redness Cardiovascular : No Chest Pain, positive SOB, No Orthopnea, no Edema Respiratory : pos Cough, pos Sputum, No Wheezing, positive dyspnea Gastrointestinal : No Nausea, No Vomiting, No Diarrhea, No abdominal Pain, No Hematochezia, No Melena Genitourinary : No Dysuria, No Urinary Frequency, No Hematuria Musculoskeletal : No joint pain, No Myalgias Skin : No Skin Lesions, No rash Neuro : No Weakness, No Numbness, No Dizziness, No Headache Psych : No Anxiety/Panic, No Depression Heme/Lymph: No Bruising, No Lymphadenopathy Endocrine : No Polyuria, No Polydipsia All other systems reviewed and are negative Constitutional Constitutional: Reports weakness Cardiovascular Cardiovascular: Reports dyspnea Respiratory Respiratory: Reports cough and Reports dyspnea Neurologic Neurologic: Reports weakness Physical Exam Vital Signs: Vital Signs: Last Vital Signs Temp 98.6 F 10/03/20 11:24 Pulse 91 10/03/20 11:24 Resp 18 10/03/20 11:24 BP 115/81 10/03/20 11:24 Pulse Ox 95 10/03/20 11:24 Body Mass Index 22.2 Const: General: cooperative and no acute distress Orie ntation/consciousness: patient oriented x3 Eyes: General: appearance normal, both eyes and all related structures Resp: Effort & Inspection: normal respiratory effort and able to speak in complete sentences Auscultation: crackles Cardio: Rate: regular rate Rhythm: regular rhythm GI: Palpation (GI): Soft to palpation Auscultation: normal bowel sounds Skin: General skin exam: no rashes or lesions noted Neuro: General: patient oriented x3 Cognition (Neuro): normal cognition Extrem: General: Yes normal to inspection and Yes no pedal edema Objective Data Current Medications Generic Name Dose Route Start Last Admin Trade Name Freq PRN Reason Stop Dose Admin Acetaminophen 650 mg 10/01/20 22:03 10/03/20 01:25 Acetaminophen 325 Mg Tablet PO 650 mg Q6H PRN Administration Pain, Mild (Pain Scale 1-3) Docusate Sodium 100 mg 10/01/20 22:03 Docusate Sodium 100 Mg Capsule PO DAILY PRN Constipation Enoxaparin Sodium 40 mg 10/01/20 23:00 10/02/20 23:29 Enoxaparin Sodium 40 Mg/0.4 Ml Syringe SUBCUT 40 mg Q24H LAURI Administration Fluticasone Propionate 1 spray 10/02/20 09:00 10/03/20 09:39 Fluticasone Propionate Nasal 16 Gm [place] NOSTRIL-B 1 spray DAILY LAURI Administration Gabapentin 100 mg 10/01/20 22:03 10/02/20 20:21 Gabapentin 100 Mg Capsule PO 100 mg BEDTIME LAURI Administration Ceftriaxone Sodium 1 gm/ 50 mls @ 100 mls/hr 10/01/20 22:03 10/03/20 00:29 Sodium Chloride IV Infused Q24H LAURI Infusion Azithromycin 500 mg/ Sodium 250 mls @ 125 mls/hr 10/01/20 23:00 10/03/20 01:58 Chloride IV Infused Q24H LAURI Infusion Melatonin 3 mg 10/01/20 22:03 10/03/20 01:25 Melatonin 3 Mg Tablet PO 3 mg BEDTIME PRN Administration IF FIRST DOSE NOT EFFECTIVE Melatonin 3 mg 10/01/20 22:03 10/02/20 20:23 Melatonin 3 Mg Tablet PO 3 mg BEDTIME LAURI Administration Methylprednisolone Sodium Succinate 60 mg 10/02/20 17:00 10/03/20 06:42 Methylprednisolone Sod Succ/Pf 125 Mg/2 Ml Vial IVPUSH 60 mg Q12H LAURI Administration Mirtazapine 30 mg 10/02/20 21:00 10/02/20 23:29 Mirtazapine 30 Mg Tablet PO 30 mg BEDTIME LAURI Administration Non-Formulary Medication 1 drop 10/01/20 22:03 Brimonidine [Alphagan P] EYE-RIGHT BID [facility] Non-Formulary Medication 1 drop 10/01/20 22:03 Difluprednate [Durezol] EYE-LEFT QID [facility]URI Non-Formulary Medication 1 drop 10/01/20 22:03 Netarsudil-Latanoprost [Rocklatan] EYE-RIGHT BEDTIME LAURI Omeprazole 20 mg 10/02/20 06:30 10/03/20 06:43 Omeprazole 20 Mg Capsule.Dr PO 20 mg DAILY@0630 LAURI Administration Ondansetron HCl 4 mg 10/01/20 22:03 Ondansetron Hcl 4 Mg/2 Ml Vial IVPUSH Q8H PRN Nausea and Vomiting Pharmacy Consult 1 each 10/01/20 14:53 Consult Rx Perform Med Rec MISCELLANE ONCE PRN Consult order Polyethylene Glycol 17 gm 10/01/20 22:03 Polyethylene Glycol 3350 17 Gm Powd.Pack PO DAILY PRN Constipation Simethicone 80 mg 10/01/20 22:12 10/02/20 11:57 Simethicone 80 Mg Tab.Chew PO 80 mg BID PRN Administration GI UPSET Sodium Chloride 3 ml 10/02/20 00:00 10/03/20 09:38 0.9 % Sodium Chloride Flush 3 Ml Syringe IVFLUSH 3 ml QSHIFT LAURI Administration Timolol Maleate 1 drop 10/02/20 09:00 10/03/20 09:39 Timolol Maleate 0.5 % Oph Gregoria 5 Ml Drbtl EYE-BOTH 1 drop BID LAURI Administration Trazodone HCl 50 mg 10/01/20 22:03 Trazodone Hcl 50 Mg Tablet PO BEDTIME PRN IF MELATONIN NOT EFFECTIVE Labs CBC & Chem 7: 10/02/20 04:18 10/02/20 04:18 Microbiology Microbiology Results: Microbiology 10/01/20 15:53 Blood - Venous Blood Culture - Preliminary No growth after 24 hours. 10/01/20 15:54 Blood - Venous Blood Culture - Preliminary No growth after 24 hours. Assessment and Plan (1) Respiratory failure with hypoxia: Status: Acute (2) Pneumonia: Status: Acute (3) Pulmonary fibrosis: Status: Acute Assessment and Plan: This is a 84-year-old female with past medical history of LD who presents to the hospital with complaints of acute on chronic shortness of breath acute on chronic hypoxic respiratory failure - most likely secondary to community-acquired pneumonia with Pulmonary fiborsis continue oxygen supplementation - negative for COVID-19, influenza and RSV community-acquired pneumonia - Chest CT showing multiple infiltrates w hx of underlying pulmonary fibrosis continue IV antibiotics - follow blood cultures Chronic pulmonary fibrosis , with Acute superadded pneumonitis seen by pulmonology recommended cont. iv solumedrol for one more day , then switch to oral prednisone DVT prophylaxis: Lovenox
[2020-10-03] MEDS: Gabapentin 100 MG CAPSULE PO (21:38)
[2020-10-03] MEDS: Mirtazapine 30 MG TABLET PO (21:38)
[2020-10-03] MEDS: cefTRIAXone sodium 1 GM in 0.9 % Sodium Chloride 50 ML IV (21:39)
[2020-10-03] MEDS: Enoxaparin Sodium 40 MG/0.4 ML SYRINGE SUBCUT (23:06)
[2020-10-03] MEDS: Azithromycin 500 MG in 0.9 % Sodium Chloride 250 ML 250 MG IV (23:06)
[2020-10-04 04:00] VITALS: BP 129/75; PULSE 83; RESP 20; TEMP 36.6; O2SAT 96
[2020-10-04] MEDS: Omeprazole 20 MG CAPSULE.DR PO (05:01)
[2020-10-04] MEDS: methylPREDNISolone Sod Succ/PF 125 MG/2 ML VIAL 60 MG IVPUSH (05:01)
[2020-10-04 08:00] VITALS: BP 124/81; PULSE 96; RESP 18; TEMP 36.7; O2SAT 90
[2020-10-04] MEDS: Fluticasone Propionate Nasal 16 GM SPRAY 1 SPRAY NOSTRIL-B (08:23)
[2020-10-04] MEDS: timoloL maleate 0.5 % Oph Sol 5 ML DRBTL 1 DROP EYE-BOTH (08:24)
[2020-10-04] MEDS: 0.9 % Sodium Chloride Flush 3 ML SYRINGE IVFLUSH (08:24)
[2020-10-04 08:55] VITALS: O2SAT 85
[2020-10-04 09:25] VITALS: O2SAT 94
--- NOTE | 2020-10-04 10:16 | P.PNPL_ITS ---
Subjective Subjective Date of Service: 10/04/20 Principal diagnosis: Acute on Chronic ILD / Resp. failure Interval history: This 84 years old very pleasant female is doing well. She thinks she is back to her usual baseline. Of course she does require oxygen but doing well at 4 L/minute. This is her usual requirement. She is afebrile, has very little cough or expectoration. Blood cultures have been negative. Objective Data Labs CBC & Chem 7: 10/02/20 04:18 10/02/20 04:18 Microbiology Microbiology Results: Microbiology 10/01/20 15:53 Blood - Venous Blood Culture - Preliminary No growth after 48 hours. 10/01/20 15:54 Blood - Venous Blood Culture - Preliminary No growth after 48 hours. Review of Systems Constitutional: Reports weakness Cardiovascular: Reports dyspnea Respiratory: Reports cough, Reports dyspnea, Denies stridor and Denies wheezing Reports Abnormal speech present and Reports weakness Allergic/Immunologic: Denies wheezing Physical Exam Vital Signs: Vital Signs: Last Vital Signs Temp 98.1 F 10/04/20 08:00 Pulse 96 10/04/20 08:00 Resp 18 10/04/20 08:00 BP 124/81 10/04/20 08:00 Pulse Ox 94 10/04/20 09:25 Body Mass Index 22.2 Const: General: cooperative, comfortable, no acute distress and well groomed; No healthy appearing (Chronically sick of a thin build.) Orien tation/consciousness: patient oriented x3 HENMT: Head: Yes normal to inspection General nose exam: No nasal polyps present and No nasal discharge present Face and sinus: Yes sinuses nontender Mouth: oropharynx normal Throat: Yes posterior oropharynx normal Eyes: General: appearance normal, both eyes and all related structures Neck: Neck: Yes normal visual inspection, Yes no lymphadenopathy, Yes trachea midline and Yes no JVD Thyroid: Thyroid normal Chest: Chest palpation & inspection: normal inspection of the chest, normal palpation of entire chest wall and no tenderness Resp: Other: BREATH SOUNDS ARE HARSH ALL OVER THE CHEST. SHE HAS INSPIRATORY WELL EXPIRATORY RHONCHI AND CREPS, THROUGHOUT THE CHEST. Cardio: Palpation: normal PMI Rate: regular rate Rhythm: regular rhythm Heart sounds: no gallops and no murmurs GI: Palpation (GI): Soft to palpation, nontender, No hepatosplenomegaly pr esent and no masses Auscultation: normal bowel sounds Back/Spine/Pelvis: Thoracic/Lumbar Spine: thoracic and lumbar spine normal to inspection Skin: General skin exam: no rashes or lesions noted Neuro: General: patient oriented x3, gait normal (NON AMBULATORY) and no focal motor deficits Cranial nerves: Yes CN's II-XII intact bilaterally and Yes Other cranial nerve findings present (MARKED GENERALIZED WEAKNESS ) Speech: Abnormal speech present Extrem: General: Yes normal to inspection, Yes no clubbing, cyanosis or edema, Yes no calf tenderness and No venous stasis dermatitis Psych: Appearance: grossly normal Speech and movement: Normal speech and movement present Assessment and Plan Assessment and plan (1) Pulmonary fibrosis: Problem details: SHE HAS EXTENSIVE BILATERAL INTERSTITIAL LUNG DISEASE, MOST LIKELY PULMONARY FIBROSIS. SHE HAS BEEN TREATED WITH IV SOLU-MEDROL FOR POSSIBILITY OF ACUTE ON CHRONIC PNEUMONITIS. WE CAN GO BACK 2 PREDNISONE 40 MG A DAY FOR 1 WEEK THAN 20 MG A DAY FOR 1 WEEK. THEN BACK TO 10 MG A DAY FOR HER MAINTENANCE DOSE. Status: Acute (2) Pneumonia: Problem details: SHE HAS EXTENSIVE CHANGES OF 0 PNEUMONITIS, MOST LIKELY ACUTE ON CHRONIC. PROBABLY EXACERBATED BY ACUTE RESPIRATORY INFECTION. CLINICALLY IMPROVED AT THIS TIME. I THINK SHE CAN BE KEPT ON ANTIBIOTICS EMPIRICALLY FOR ABOUT 1 WEEK( CEFTIN AND AZITHROMYCIN ) Status: Acute (3) Respiratory failure with hypoxia: Problem details: PATIENT HAS AND IS EXPECTED TO HAVE CHRONIC HYPOXEMIA, AND WILL REQUIRE OXYGEN SUPPLEMENTATION. CURRENTLY DOING WELL AT 4 L/MINUTE BY NASAL CANNULA. IN FUTURE HER OXYGEN REQUIREMENT MAY INCREASE, AND SHE MAY NEED TO BE USING OXYMIZER. Status: Acute Assessment and Plan: THE PATIENT IS AT A LONG-TERM FACILITY, [facility]. FOR HER PULMONARY ISSUES SHE IS BEING FOLLOWED BY A SPECIAL EVENT ASSISTANT AT [facility]. SHE CAN CONTINUE TO BE FOLLOWED OUTPATIENT. Time Spent With Patient Time: Total time spent is greater than 50% in coordination of care (as documented) at patient's floor/unit and/or counseling patient: Time with patient: 15 - 24 minutes
--- NOTE | 2020-10-04 10:52 | P.DS_ITS ---
DS: Providers Provider Date of admission: 10/01/20 20:24 Primary care physician: Unknown Physician Consults: 10/02/20 10:06 Consult to Pulmonology Routine Consulting Provider: Ngozi Talley Reason for consultation: pneumonia , hypoxia DS: Diagnosis Discharge Diagnosis (1) Pulmonary fibrosis: Status: Acute (2) Pneumonia: Status: Acute Problem details: SHE HAS EXTENSIVE CHANGES OF 0 PNEUMONITIS, MOST LIKELY ACUTE ON CHRONIC. PROBABLY EXACERBATED BY ACUTE RESPIRATORY INFECTION. CLINICALLY IMPROVED AT THIS TIME. I THINK SHE CAN BE KEPT ON ANTIBIOTICS EMPIRICALLY FOR ABOUT 1 WEEK( CEFTIN AND AZITHROMYCIN ) (3) Respiratory failure with hypoxia: Status: Acute Problem details: PATIENT HAS AND IS EXPECTED TO HAVE CHRONIC HYPOXEMIA, AND WILL REQUIRE OXYGEN SUPPLEMENTATION. CURRENTLY DOING WELL AT 4 L/MINUTE BY NASAL CANNULA. IN FUTURE HER OXYGEN REQUIREMENT MAY INCREASE, AND SHE MAY NEED TO BE USING OXYMIZER. DS: Medications Discharge Medications Home Medications: Home Medications Medication Instructions Recorded Confirmed Durezol 1 drp OPHTHALMIC-LEFT QID 10/01/20 10/01/20 Mucinex 1,200 mg PO BID 10/01/20 10/01/20 Multi-Day Plus Minerals 1 tab PO DAILY 10/01/20 10/01/20 PreserVision AREDS-2 1 tab PO BID 10/01/20 10/01/20 Probiotic 3,000 mmu cells PO BID 10/01/20 10/01/20 Rocklatan 1 drp OPHTHALMIC-RIGHT BEDTIME 10/01/20 10/01/20 brimonidine [Alphagan P] 1 drp OPHTHALMIC-RIGHT BID 10/01/20 10/01/20 fluticasone propionate 1 spray INTRANASAL DAILY 10/01/20 10/01/20 gabapentin 100 mg PO BEDTIME 10/01/20 10/01/20 melatonin 3 mg PO BEDTIME 10/01/20 10/01/20 melatonin 3 mg PO BEDTIME PRN 10/01/20 10/01/20 mirtazapine [Remeron] 30 mg PO DAILY 10/01/20 10/01/20 pantoprazole [Protonix] 20 mg PO DAILY 10/01/20 10/01/20 polyethylene glycol 3350 [Miralax] 17 g PO DAILY PRN 10/01/20 10/01/20 prednisone 10 mg PO DAILY 10/01/20 10/01/20 simethicone 80 mg PO BID PRN 10/01/20 10/01/20 timolol 1 drp OPHTHALMIC-RIGHT BID 10/01/20 10/01/20 trazodone 50 mg PO BEDTIME PRN 10/01/20 10/01/20 Previous Rx's Medication Instructions Recorded cefuroxime axetil 500 mg PO BID 7 Days #10 tab 10/04/20 prednisone 10 - 40 mg PO DAILY #42 tab 10/04/20 DS: Summary Hospital Course Hospital Course: SHE PRESENT WITH RESPIRATORY FAILURE AND FOUND TO HAVE EXTENSIVE BILATERAL INTERSTITIAL LUNG DISEASE, MOST LIKELY PULMONARY FIBROSIS. SHE HAS BEEN TREATED WITH IV SOLU-MEDROL FOR POSSIBILITY OF ACUTE ON CHRONIC PNEUMONITIS. SHE HAS BEEN ON ANTIBIOTICS WITH CEFTRIAXONE. SHE IS DOING BETTER AND HAS BEEN WEANED BACK TO HER BASELINE OXYGEN. SHE HAS BEEN BEEN EVALUATED BY DR TALLEY WITH THE FOLLOWING RECOMMENDATIO :2 PREDNISONE 40 MG A DAY FOR 1 WEEK THEN 20 MG A DAY FOR 1 WEEK. THEN BACK TO 10 MG A DAY FOR HER MAINTENANCE DOSE AND CEFTRIAXONE FOR 5 MORE DAYS Time Spent with Patient Time attestation: Total time spent providing and/or coordinating discharge services: Physical Exam Vital Signs: Vital Signs: Last Vital Signs Temp 98.1 F 10/04/20 08:00 Pulse 96 10/04/20 08:00 Resp 18 10/04/20 08:00 BP 124/81 10/04/20 08:00 Pulse Ox 94 10/04/20 09:25 Body Mass Index 22.2 General: AO X 3, no acute distress Resp: CTA bilateral CVS: S1,S2,RRR GI: +BS, NT, no distention Skin: No rash Neuro: motor grossly intact Psych: appropriate affect DS: Data Data Completed and Pending Labs on day of discharge: 10/01/20 SARS-CoV2/FLU/RSV Stat 10/01/20 14:53 ECG 12 lead EKG Stat EKG Documentation DIRECTED CT chest wo con Stat Albuterol Sulfate (0.083%) [Ventolin (0.083%)] 5 mg INHALE ONCE ONE Doxycycline Hyclate [Vibramycin] 100 mg 0.9 % Sodium Chloride [Ns] 250 ml IV ONCE cefEPime HCl [Maxipime] 1 gm 0.9 % Sodium Chloride [Ns] 50 ml IV ONCE methylPREDNISolone Sod Succ/PF [SOLU-MedroL] 60 mg IVPUSH ONCE ONE 10/01/20 15:37 B Type Natriuretic Peptide Stat Basic Metabolic Panel Stat Complete Blood Count Auto Diff Stat Ferritin Stat Lactate Dehydrogenase Stat Lactic Acid Stat Lipase Stat Liver Panel Stat Magnesium Stat Partial Thromboplastin Time Stat Procalcitonin Stat Prothrombin Time INR Stat Troponin-I High Sensitivity Stat 10/01/20 15:42 cefEPime HCl [Maxipime] 1 gm IV .STK-MED ONE 10/01/20 16:20 Doxycycline Hyclate [Vibramycin] 100 mg IV .STK-MED ONE 10/01/20 20:20 Transfer Order Routine 10/01/20 23:53 Azithromycin [Zithromax] 500 mg IV .STK-MED ONE 10/01/20 23:54 cefTRIAXone sodium [Rocephin] 1 gm .ROUTE .STK-MED ONE 10/02/20 04:18 Basic Metabolic Panel Routine Complete Blood Count Auto Diff Routine 10/02/20 09:00 Fluticasone Propionate Nasal [Flonase Nasal] 1 spray NOSTRIL-B DAILY predniSONE 10 mg PO DAILY 10/02/20 20:19 cefTRIAXone sodium [Rocephin] 1 gm .ROUTE .STK-MED ONE 10/02/20 23:19 Azithromycin [Zithromax] 500 mg IV .STK-MED ONE 10/03/20 21:34 cefTRIAXone sodium [Rocephin] 1 gm .ROUTE .STK-MED ONE 10/03/20 22:49 Azithromycin [Zithromax] 500 mg IV .[facility] ONE Laboratory Last Values WBC 9.1 X10*3/uL (4.8-10.8) 10/02/20 04:18 RBC 4.34 X10*6/uL (4.20-5.50) 10/02/20 04:18 Hgb 12.4 g/dl (12.0-16.0) 10/02/20 04:18 Hct 39.6 % (37-47) 10/02/20 04:18 MCV 91.2 fL (80-98) 10/02/20 04:18 MCH 28.6 pg (27.0-33.0) 10/02/20 04:18 MCHC 31.3 g/dl (31.0-35.0) 10/02/20 04:18 RDW 14.2 % (11.0-16.0) 10/02/20 04:18 Plt Count 282 X10*3/uL (160-400) 10/02/20 04:18 MPV 9.6 fL (9.4-12.3) 10/02/20 04:18 Immature Gran % (Auto) 0.7 % (0.0-0.4) H 10/02/20 04:18 Neut % (Auto) 74.9 % (45-73) H 10/02/20 04:18 Lymph % (Auto) 15.3 % (20-40) L 10/02/20 04:18 [place] % (Auto) 8.4 % (2-11) 10/02/20 04:18 Eos % (Auto) 0.1 % (0-4) 10/02/20 04:18 Baso % (Auto) 0.6 % (0-2) 10/02/20 04:18 Lymph # (Auto) 1.4 X10*3/uL (1.2-4.9) 10/02/20 04:18 [place] # (Auto) 0.8 X10*3/uL (0.1-1.2) 10/02/20 04:18 Eos # (Auto) 0.0 X10*3/uL (0.0-0.4) 10/02/20 04:18 Baso # (Auto) 0.1 X10*3/uL (0.0-0.2) 10/02/20 04:18 Abs Immat Gran (auto) 0.06 X10*3/uL (0.00-0.03) H 10/02/20 04:18 Absolute Neuts (auto) 6.8 X10*3/uL (2.0-8.3) 10/02/20 04:18 Absolute Nucleated RBC 0.000 X10*3/uL (0.0-0.012) 10/02/20 04:18 Nucleated RBC % (auto) 0.0 /100WBC (0.0-0.2) 10/02/20 04:18 PT 11.5 SEC (10.8-13.0) 10/01/20 15:37 INR 1.0 (0.9-1.1) 10/01/20 15:37 APTT 39.0 SEC (24.1-38.0) H 10/01/20 15:37 Sodium 137 mmol/L (135-145) 10/02/20 04:18 Potassium 5.0 mmol/l (3.3-5.1) 10/02/20 04:18 Chloride 101 mmol/L (96-108) 10/02/20 04:18 Carbon Dioxide 29 mmol/L (22-29) 10/02/20 04:18 Anion Gap 12 (-) 10/02/20 04:18 BUN 17 mg/dL (9-16) H 10/02/20 04:18 Creatinine 0.55 mg/dL (0.5-1.4) 10/02/20 04:18 Estim Creat Clear Calc 75.3 10/02/20 04:18 Estimated GFR > 60 10/02/20 04:18 Random Glucose 114 mg/dL (60-115) D 10/02/20 04:18 Lactic Acid 1.6 mmol/L (0.5-2.0) 10/01/20 15:37 Calcium 8.3 mg/dL (8.4-10.2) L 10/02/20 04:18 Magnesium 1.9 mg/dL (1.6-2.6) 10/01/20 15:37 Ferritin 56 ng/mL (10-250) 10/01/20 15:37 Total Bilirubin 0.3 mg/dL (0.0-1.0) 10/01/20 15:37 Direct Bilirubin 0.2 mg/dL (0.0-0.5) 10/01/20 15:37 AST 40 U/L (5-31) H 10/01/20 15:37 ALT 172 U/L (0-31) H 10/01/20 15:37 Alkaline Phosphatase 115 U/L (39-117) 10/01/20 15:37 Lactate Dehydrogenase 218 U/L (122-220) 10/01/20 15:37 Troponin I High Sens 12.7 ng/L (<3.5-17.0) 10/01/20 15:37 B-Natriuretic Peptide 282 pg/mL (<100) H 10/01/20 15:37 Total Protein 6.0 g/dL (6.5-8.0) L 10/01/20 15:37 Albumin 3.5 g/dL (3.5-5.0) 10/01/20 15:37 Lipase 37 U/L (8-78) 10/01/20 15:37 Procalcitonin 0.03 ng/mL 10/01/20 15:37 Coronavirus (PCR) NEGATIVE (Negative) 10/01/20 Unknown Influenza Type A (PCR) NEGATIVE (Negative) 10/01/20 Unknown Influenza Type B (PCR) NEGATIVE (Negative) 10/01/20 Unknown RSV RNA Qual (PCR) NEGATIVE (Negative) 10/01/20 Unknown Preliminary micro results at discharge 10/01/20 15:53 Blood Culture - Preliminary Blood - Venous No growth after 48 hours. 10/01/20 15:54 Blood Culture - Preliminary Blood - Venous No growth after 48 hours. Discharge Plan Discharge Anticipated Discharge Date/Time: 10/04/20 10:18 Patient Disposition: er [facility] Referrals: [facility] [Outside] Physician,Unknown [Primary Care Provider] - Discharge Medications: New cefuroxime axetil 500 mg tablet 500 mg PO BID 7 Days Qty: 10 RF: 0 prednisone 10 mg tablet 10 - 40 mg PO DAILY Qty: 42 RF: 0 Continued prednisone 10 mg Tablet 10 mg PO DAILY RF: 0 polyethylene glycol 3350 [Miralax] 17 gram Powder In Packet 17 g PO DAILY PRN (Reason: Constipation) RF: 0 pantoprazole [Protonix] 20 mg Tablet,Delayed Release (Dr/Ec) 20 mg PO DAILY RF: 0 Mucinex 1,200 mg Tablet Extended Release 12hr 1,200 mg PO BID RF: 0 Probiotic 3 billion cell Capsule 3,000 mmu cells PO BID RF: 0 PreserVision AREDS-2 [id number]-[id number]-mg Capsule 1 tab PO BID RF: 0 Multi-Day Plus Minerals 18 mg iron-400 mcg-25 mcg Tablet 1 tab PO DAILY RF: 0 trazodone 50 mg Tablet 50 mg PO BEDTIME PRN (Reason: IF MELATONIN NOT EFFECTIVE) RF: 0 melatonin 3 mg Tablet 3 mg PO BEDTIME RF: 0 melatonin 3 mg Tablet 3 mg PO BEDTIME PRN (Reason: IF FIRST DOSE NOT EFFECTIVE) RF: 0 timolol 0.5 % Drops 1 drp ophthalmic-Right BID RF: 0 mirtazapine [Remeron] 30 mg Tablet 30 mg PO DAILY RF: 0 gabapentin 100 mg Capsule 100 mg PO BEDTIME RF: 0 fluticasone propionate 50 mcg/actuation [place],Suspension 1 spray INTRANASAL DAILY RF: 0 brimonidine [Alphagan P] 0.15 % Drops 1 drp ophthalmic-Right BID RF: 0 Durezol 0.05 % Drops 1 drp ophthalmic-Left QID RF: 0 simethicone 80 mg Tablet 80 mg PO BID PRN (Reason: GI UPSET) RF: 0 Rocklatan 0.02-0.005 % Drops 1 drp ophthalmic-Right BEDTIME RF: 0 Discontinued doxycycline hyclate 100 mg Capsule 100 mg PO BID RF: 0 Discharge Orders: Discharge Order (Routine); Ordered 10/04/20 Ordered By: Blas Herrera Diet: advance to usual diet Activity on Discharge: As tolerated Discharge Date/Time: 10/04/20 13:45 Visit Report Forms: Patient Portal Discharge page Care Plan Goals: Full recovery from respiratory Health Concerns: chronic pulmonary fibrosis Plan of Treatment: Take Ceftin and Prednisone as ordered
[2020-10-04 11:54] VITALS: BP 118/76; PULSE 90; RESP 18; TEMP 36.5; O2SAT 94
--- NOTE | 2020-10-04 12:27 | MHC.CM.PN ---
DC ARRANGED FOR TODAY AT 1:30 BY DINO ARRANGED DC WITH LIZ MANRIQUE AT [facility] DID MNOT RESPOND IN ALLSCRIPTS
--- NOTE | 2020-10-04 12:28 | MHC.CM.PN ---
MESSAGE LEFT FOR VIKTOR FERRARI [phone] RE DC
== END 2020-10-04 13:45 | disposition skilled nursing facility (03) | DRG 193 ==
LOC: HO.ED 19:26 → HO.IMC 20:55
PROVIDERS: Admitting Provider Internal Medicine; Emergency Provider Emergency Medicine; Visit Provider Internal Medicine
DX: J18.9 Pneumonia, unspecified organism (principal); J96.21 Acute and chronic respiratory failure with hypoxia; J84.10 Pulmonary fibrosis, unspecified; Z20.828 Contact with and (suspected) exposure to other viral communicable diseases; Z79.51 Long term (current) use of inhaled steroids; Z79.52 Long term (current) use of systemic steroids; Z79.899 Other long term (current) drug therapy
CPT/HCPCS: 0241U; 36415; 71250; 80048; 80076; 82728; 83605; 83615; 83690; 83735; 83880; 84145; 84484; 85025; 85610; 85730; 87040; 93005; 94640; 96365; 96366; 96367; 99285; J0456; J0692; J0696; J1650; J2930

== ENCOUNTER 2020-10-24 09:29 | Inpatient (IN) | payer MEDICARE, OTHER, SELFPAY ==
[2020-10-24] VITALS (8 sets, daily range): BP systolic 99–120; BP diastolic 62–80; PULSE 83–106; RESP 16–34; TEMP 36.2–37.2; O2SAT 91–96; BMI 21.9
--- NOTE | 2020-10-24 | CT_ITS ---
EXAMINATION: CT CHEST WITHOUT CONTRAST CLINICAL INFORMATION: Pulmonary fibrosis. Question new infiltrate. COMPARISON: Previous chest CT 10/01/2020 and chest x-ray from earlier the same day TECHNIQUE: Multidetector volumetric CT imaging of the chest was done. Axial MIP volume rendering provided. Sagittal and coronal reformatted images were obtained. This CT examination was performed using dose optimization techniques as appropriate, variously including the following: *Automated exposure control *Adjustment of mA and/or kV according to patient size (this includes techniques or standardized protocols for targeted exams where dose is matched to indication/reason for exam; i.e. extremities or head) *Use of iterative reconstruction technique DLP: 224 mGy-cm FINDINGS: LUNGS: There is evidence of severe interstitial lung disease with increased peripheral reticulation, traction bronchiolectasis and honeycombing. This is seen diffusely throughout the lungs but greatest at the lung bases. There is increased consolidation in the peripheral right lung. It is uncertain whether this represents a acute infiltrate, pulmonary edema or is related to mass effect from the right pleural effusion. Nodular opacities in the left lower lobe appear unchanged. Nodular opacities in the right lung are obscured due to question increased airspace disease. MEDIASTINUM: The heart is enlarged. There is coronary artery calcification. There is no pericardial effusion. The thoracic aorta is normal in caliber. The pulmonary arteries are prominent questionable for pulmonary artery hypertension. There are small mediastinal lymph nodes PLEURA: There is a new small right pleural effusion. There is no left pleural effusion. AXILLA: No chest wall mass or enlarged axillary lymph nodes are seen. UPPER ABDOMEN: Unremarkable. OSSEOUS STRUCTURES: There is thoracolumbar scoliosis. There are degenerative changes of the spine. CT/CT chest wo con IMPRESSION: Severe interstitial lung disease. Stable left lung nodular opacities. Right lung nodular opacities not well evaluated. New small loculated right pleural effusion and peripheral right sided increased airspace disease. Differential would include pneumonia and pulmonary edema.
--- NOTE | 2020-10-24 09:33 | ED_ITS ---
HPI - SOB/Dyspnea General Chief Complaint: Dyspnea Stated Complaint: SOB 88%4L,DUONEB GIVEN Time Seen by Provider: 10/24/20 09:34 Source: patient, EMS and old records reviewed Mode of arrival: EMS Limitations: no limitations History of Present Illness HPI Narrative: 84 yo female with pulmonary fibrosis - increased O2 demands over past few days, c/o fatigue and nausea as well, on chronic prednisone 20mg daily currently 5L 95% - she is a full code, after discussion with patient she does not want to be intubated or on a ventilator but does want attempt at CPR, her daughter called ahead and stated she is the HCP but her mom can make decisions - she would like her mom to eventually go back to [facility] on hospice - the patient is not sure about this MD elicited complaint: shortness of breath 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) Onset (ago): day(s) (3) Context: recent illness Severity: moderate Exacerbating factors: exertion Relieving factors: oxygen and upright position Known history of: other (pulmonary fibrosis) Associated symptoms: cough, dizziness and other (anorexia) Treatment prior to arrival: oxygen Related Data Home Medications Medication Instructions Recorded Confirmed Durezol 1 drp OPHTHALMIC-LEFT QID 10/01/20 10/24/20 Multi-Day Plus Minerals 1 tab PO DAILY 10/01/20 10/24/20 PreserVision AREDS-2 1 tab PO BID 10/01/20 10/24/20 Rocklatan 1 drp OPHTHALMIC-RIGHT BEDTIME 10/01/20 10/24/20 brimonidine [Alphagan P] 1 drp OPHTHALMIC-RIGHT BID 10/01/20 10/24/20 fluticasone propionate 1 spray INTRANASAL DAILY 10/01/20 10/24/20 gabapentin 100 mg PO BEDTIME 10/01/20 10/24/20 melatonin 3 mg PO BEDTIME 10/01/20 10/24/20 melatonin 3 mg PO BEDTIME PRN 10/01/20 10/24/20 mirtazapine [Remeron] 30 mg PO BEDTIME 10/01/20 10/24/20 pantoprazole [Protonix] 20 mg PO DAILY 10/01/20 10/24/20 polyethylene glycol 3350 [Miralax] 17 g PO DAILY PRN 10/01/20 10/24/20 prednisone 10 mg PO DAILY 10/01/20 10/24/20 timolol 1 drp OPHTHALMIC-RIGHT BID 10/01/20 10/24/20 trazodone 50 mg PO BEDTIME PRN 10/01/20 10/24/20 Sodium Chloride Solution For TID 10/24/20 Nebulizer 7% acetaminophen 650 mg PO Q4H PRN 10/24/20 10/24/20 bisacodyl 10 mg SD DAILY PRN 10/24/20 10/24/20 guaifenesin [Mucinex] 600 mg PO BID 10/24/20 10/24/20 sertraline [Zoloft] 25 mg PO DAILY 10/24/20 10/24/20 simethicone 80 mg PO BID PRN 10/24/20 10/24/20 sodium chloride [Saline Nasal] 1 spray INTRANASAL Q2H PRN 10/24/20 10/24/20 Allergies Allergy/AdvReac Type Severity Reaction Status Date / Time Penicillins Allergy Rash Verified 10/01/20 14:47 Review of Systems Review of Systems: Constitutional : No Fever, No Chills ENT/Mouth : No sore throat, No Rhinorrhea, No Swallowing Difficulty Eyes: No Eye Pain, No Swelling, No Redness Cardiovascular : No Chest Pain, positive SOB, No Orthopnea, no Edema Respiratory : pos Cough, No Sputum, No Wheezing, positive dyspnea Gastrointestinal :pos Nausea, No Vomiting, No Diarrhea, No abdominal Pain, No Hematochezia, No Melena Genitourinary : No Dysuria, No Urinary Frequency, No Hematuria Musculoskeletal : No joint pain, No Myalgias Skin : No Skin Lesions, No rash Neuro : pos Weakness, No Numbness, No Dizziness, No Headache Psych : No Anxiety/Panic, No Depression Heme/Lymph: No Bruising, No Lymphadenopathy Endocrine : No Polyuria, No Polydipsia All other systems reviewed and are negative PMFSH Past Medical History Attestation statement: The following information was validated with the patient. Medical History Pneumonia Pulmonary fibrosis Pulmonary fibrosis Social History Social History Household Members: None Housing: Long Term Alcohol intake: never Smoking Status: Former smoker Smoked in Last 30 Days: No Use of substances other than those prescribed or required for medical reasons: No Advance Directives: No Advance Directives Information Provided: Yes service: No Current occupational status: retired Physical Exam Vital Signs: Vital Signs: Last Vital Signs Temp 99 F 10/24/20 09:37 Pulse 83 10/24/20 09:57 Resp 22 H 10/24/20 09:37 BP 100/71 10/24/20 09:37 Pulse Ox 96 10/24/20 09:37 Body Mass Index 21.9 Appearance: Alert. Oriented X3. Mild acute distress. Eyes: Pupils equal, round and reactive to light. ENT: Pharynx normal. Neck: Normal inspection. Neck supple. CVS: Normal heart rate and rhythm. Pulses normal. Respiratory: Mild respiratory distress with tachypnea and retractions. Breath sounds decreased throughout, coarse RLL Abdomen: Soft and nontender. Skin: Skin warm and dry. Normal skin color. Normal skin turgor. Extremities: No lower extremity edema. No calf ttp Neuro: Oriented X 3. No motor deficit. No sensory deficit. Course Course Course Narrative: IVF held, started on levofloxacin - will admit for pneumoni a and increased O2 demands MDM - SOB/Dyspnea MDM Narrative Medical decision making narrative: 84 yo female with pulm fibrosis on home O2 and prednisone 20mg daily - over the past few days increased O2 demands, tried Trilogy but could not tolerate it, she was a full CODE but today rescinds intubation/ventilation status - at this time will need labs, cultures, CXR, IV steroids, neb treatment, dispo per results and findings. new MOLST on chart - DNI but wants CPR Lab Data Result diagrams: 10/24/20 10:00 10/24/20 10:03 Labs: Lab Results 10/24/20 10/24/20 10/24/20 Range/Units 10:00 10:00 10:00 WBC 11.6 H (4.8-10.8) X10*3/uL RBC 4.44 (4.20-5.50) X10*6/uL Hgb 12.5 (12.0-16.0) g/dl Hct 37.6 (37-47) % MCV 84.7 (80-98) fL MCH 28.2 (27.0-33.0) pg MCHC 33.2 (31.0-35.0) g/dl RDW 13.8 (11.0-16.0) % Plt Count 269 (160-400) X10*3/uL MPV 9.2 L (9.4-12.3) fL Immature Gran % (Auto) 0.6 H (0.0-0.4) % Neut % (Auto) 82.0 H (45-73) % Lymph % (Auto) 10.0 L (20-40) % [place] % (Auto) 6.1 (2-11) % Eos % (Auto) 0.9 (0-4) % Baso % (Auto) 0.4 (0-2) % Lymph # (Auto) 1.2 (1.2-4.9) X10*3/uL [place] # (Auto) 0.7 (0.1-1.2) X10*3/uL Eos # (Auto) 0.1 (0.0-0.4) X10*3/uL Baso # (Auto) 0.1 (0.0-0.2) X10*3/uL Abs Immat Gran (auto) 0.07 H (0.00-0.03) X10*3/uL Absolute Neuts (auto) 9.5 H (2.0-8.3) X10*3/uL Absolute Nucleated RBC 0.000 (0.0-0.012) X10*3/uL Nucleated RBC % (auto) 0.0 (0.0-0.2) /100WBC Hold Blue Top SEE NOTE Sodium (135-145) mmol/L Potassium (3.3-5.1) mmol/l Chloride (96-108) mmol/L Carbon Dioxide (22-29) mmol/L Anion Gap (12-20) BUN (9-16) mg/dL Creatinine (0.5-1.4) mg/dL Estim Creat Clear Calc Estimated GFR Random Glucose (60-115) mg/dL Lactic Acid 1.1 (0.5-2.0) mmol/L Calcium (8.4-10.2) mg/dL Magnesium (1.6-2.6) mg/dL Troponin I High Sens (<3.5-17.0) ng/L B-Natriuretic Peptide (<100) pg/mL COVID-19 (AMY) (Negative) COVID-19 Clin Com 10/24/20 10/24/20 10/24/20 Range/Units 10:00 10:00 10:03 WBC (4.8-10.8) X10*3/uL RBC (4.20-5.50) X10*6/uL Hgb (12.0-16.0) g/dl Hct (37-47) % MCV (80-98) fL MCH (27.0-33.0) pg MCHC (31.0-35.0) g/dl RDW (11.0-16.0) % Plt Count (160-400) X10*3/uL MPV (9.4-12.3) fL Immature Gran % (Auto) (0.0-0.4) % Neut % (Auto) (45-73) % Lymph % (Auto) (20-40) % [place] % (Auto) (2-11) % Eos % (Auto) (0-4) % Baso % (Auto) (0-2) % Lymph # (Auto) (1.2-4.9) X10*3/uL [place] # (Auto) (0.1-1.2) X10*3/uL Eos # (Auto) (0.0-0.4) X10*3/uL Baso # (Auto) (0.0-0.2) X10*3/uL Abs Immat Gran (auto) (0.00-0.03) X10*3/uL Absolute Neuts (auto) (2.0-8.3) X10*3/uL Absolute Nucleated RBC (0.0-0.012) X10*3/uL Nucleated RBC % (auto) (0.0-0.2) /100WBC Hold Blue Top Sodium 124 L (135-145) mmol/L Potassium 4.3 (3.3-5.1) mmol/l Chloride 86 L (96-108) mmol/L Carbon Dioxide 32 H (22-29) mmol/L Anion Gap 10 L (12-20) BUN 13 (9-16) mg/dL Creatinine 0.55 (0.5-1.4) mg/dL Estim Creat Clear Calc 75.3 Estimated GFR > 60 Random Glucose 129 H (60-115) mg/dL Lactic Acid (0.5-2.0) mmol/L Calcium 8.0 L (8.4-10.2) mg/dL Magnesium 2.0 (1.6-2.6) mg/dL Troponin I High Sens 15.7 (<3.5-17.0) ng/L B-Natriuretic Peptide 661 H (<100) pg/mL COVID-19 (AMY) Negative (Negative) COVID-19 Clin Com See Note ECG Data Attestation: I personally reviewed and interpreted this ECG as follows: ECG interpretation date: 10/24/20 ECG interpretation time: 10:10 Interpretation: Rate: 85 Rhythm: NSR [place]: right right atrial enlargement. Normal POLLY. Normal QRS complex. ST T wave : inverted inferior leads, V3-V5 qTC: normal prior studies: changed from Sep 2020 The study has been interpreted contemporaneously by me. . Discharge Plan Discharge Clinical Impression: Pulmonary fibrosis, Pneumonia, Hypoxia, Acute hyponatremia Patient Disposition: Admitted As Inpatient Prescriptions: No Action acetaminophen 325 mg Tablet 650 mg PO Q4H PRN (Reason: Pain (Scale Score 1-3)) RF: 0 bisacodyl 10 mg Suppository 10 mg SD DAILY PRN (Reason: Constipation) RF: 0 guaifenesin [Mucinex] 600 mg Tablet Extended Release 12hr 600 mg PO BID RF: 0 sodium chloride [Saline Nasal] 0.65 % Aerosol,[place] 1 spray INTRANASAL Q2H PRN (Reason: Dry Nasal Passages) RF: 0 simethicone 80 mg Tablet,Chewable 80 mg PO BID PRN (Reason: GI UPSET) RF: 0 Sodium Chloride Solution For Nebulizer 7% TID RF: 0 sertraline [Zoloft] 25 mg Tablet 25 mg PO DAILY RF: 0 prednisone 10 mg Tablet 10 mg PO DAILY RF: 0 polyethylene glycol 3350 [Miralax] 17 gram Powder In Packet 17 g PO DAILY PRN (Reason: Constipation) RF: 0 pantoprazole [Protonix] 20 mg Tablet,Delayed Release (Dr/Ec) 20 mg PO DAILY RF: 0 PreserVision AREDS-2 [id number] Capsule 1 tab PO BID RF: 0 Multi-Day Plus Minerals 18 mg iron-400 mcg-25 mcg Tablet 1 tab PO DAILY RF: 0 trazodone 50 mg Tablet 50 mg PO BEDTIME PRN (Reason: IF MELATONIN NOT EFFECTIVE) RF: 0 melatonin 3 mg Tablet 3 mg PO BEDTIME PRN (Reason: IF FIRST DOSE INEFFECTIVE) RF: 0 melatonin 3 mg Tablet 3 mg PO BEDTIME RF: 0 timolol 0.5 % Drops 1 drp ophthalmic-Right BID RF: 0 mirtazapine [Remeron] 30 mg Tablet 30 mg PO BEDTIME RF: 0 gabapentin 100 mg Capsule 100 mg PO BEDTIME RF: 0 fluticasone propionate 50 mcg/actuation [place],Suspension 1 spray INTRANASAL DAILY RF: 0 brimonidine [Alphagan P] 0.15 % Drops 1 drp ophthalmic-Right BID RF: 0 Durezol 0.05 % Drops 1 drp ophthalmic-Left QID RF: 0 Rocklatan 0.02-0.005 % Drops 1 drp ophthalmic-Right BEDTIME RF: 0
--- NOTE | 2020-10-24 09:42 | ECG_ITS ---
Test Reason : SOB Blood Pressure : / mmHG Vent. Rate : 085 BPM Atrial Rate : 085 BPM P-R Int : 138 ms QRS Dur : 098 ms QT Int : 374 ms P-R-T Axes : 044 -63 -23 degrees QTc Int : 445 ms Normal sinus rhythm Left atrial enlargement Left anterior fascicular block ST & T wave abnormality, consider anterolateral ischemia Abnormal ECG When compared with ECG of 01-OCT-2020 15:16, Premature supraventricular complexes are no longer Present T wave inversion now evident in Anterolateral leads Referred By: Mihaela Sutherland Electronically Signed By:LILIA MARLOW MD
--- NOTE | 2020-10-24 09:42 | XR_ITS ---
EXAMINATION: XR CHEST CLINICAL INFORMATION: Dyspnea. COMPARISON: CT chest 10/01/2020 TECHNIQUE: Frontal view of the chest was obtained. FINDINGS: There is a large opacity seen in the right lung base from loculated effusion/consolidation or atelectasis combination. It extends superiorly into the right upper lobe along the lateral chest. Increase interstitial markings seen throughout both lungs as was noted on the CT chest exam. Heart size and perivascular is normal. There is mild retraction of mediastinum and trachea to the right due to loss of right lung volume. No gross bony abnormality. XR/XR chest 1V IMPRESSION: Patchy opacities seen in the right lower lobe with extension along the right lateral chest wall into the apex likely combination of pleural thickening/effusion and right lower lobe consolidation/atelectasis. Bilateral increased reticular interstitial markings are again visualized in both lungs. Mild retraction of trachea and mediastinum to the right
[2020-10-24] MEDS: Albuterol Sulfate (0.083%) 2.5 MG/3 ML VIAL.NEB INHALE ×3 (09:53→20:34)
[2020-10-24 10:10] LABS: MANUAL DIFF FLAG NO
[2020-10-24 10:12] LABS: Basophils Absolute Auto 0.1 X10*3/uL (0.0-0.2); Basophils Percent Auto 0.4 % (0-2); Eosinophils Absolute Auto 0.1 X10*3/uL (0.0-0.4); Eosinophils Percent Auto 0.9 % (0-4); Hematocrit 37.6 % (37-47); Hemoglobin 12.5 g/dl (12.0-16.0); Imm Gran Abs Auto 0.07 X10*3/uL (0.00-0.03); Imm Gran Pct Auto 0.6 % (0.0-0.4); Lymphocytes Absolute Auto 1.2 X10*3/uL (1.2-4.9); Mean Corpuscular HGB Conc 33.2 g/dl (31.0-35.0); Mean Corpuscular Hemoglobin 28.2 pg (27.0-33.0); Mean Corpuscular Volume 84.7 fL (80-98); Mean Platelet Volume 9.2 fL (9.4-12.3); Monocytes Absolute Auto 0.7 X10*3/uL (0.1-1.2); Monocytes Percent Auto 6.1 % (2-11); Neutrophils Absolute Auto 9.5 X10*3/uL (2.0-8.3); Platelet Count 269 X10*3/uL (160-400); Red Blood Count 4.44 X10*6/uL (4.20-5.50); Red Cell Distribution Width 13.8 % (11.0-16.0); White Blood Count 11.6 X10*3/uL (4.8-10.8)
[2020-10-24] MEDS: 0.9 % Sodium Chloride 500 ML IV (10:13)
[2020-10-24] MEDS: ondansetron HCL 4 MG/2 ML VIAL IVPUSH (10:14)
[2020-10-24] MEDS: methylPREDNISolone Sod Succ/PF 125 MG/2 ML VIAL 60 MG IVPUSH ×3 (10:14→22:53)
[2020-10-24] MEDS: levoFLOXacin/D5W 500 MG/100 ML PIGGYBACK 100 MG IV (10:19)
[2020-10-24 10:35] LABS: COVID-19 Test Negative (Negative); IDNOW Serial# 9DD0AD1C
--- NOTE | 2020-10-24 10:35 | PC.NURSE ---
PT SEEN BY PROVIDER, HERE FOR SOB AT SNF FACILITY, HX OF SIMILAR EPISODES. PLACED ON 6L NC W SPO2 UP TO 95-96%, RESP TX AT BEDSIDE FOR DUONEB. PT RR SHALLOW/UNLABORED, SPEAKING IN FULL CLEAR SENTENCES. DENIES PAIN. PATENT 20 G IV IN BL ARMS. BLOOD LABS OBTAINED AND SENT, MEDICATED PER EMAR. PLACED ON TELE; HR 86 BPM SR. CALL PARK WITHIN REACH, WCTM.
[2020-10-24 10:39] LABS: Lactic Acid 1.1 mmol/L (0.5-2.0)
[2020-10-24 10:50] LABS: B Type Natriuretic Peptide 661 pg/mL (<100); Troponin-I High Sensitivity 15.7 ng/L (<3.5-17.0)
[2020-10-24 10:56] LABS: Anion Gap 10 (12-20); Blood Urea Nitrogen 13 mg/dL (9-16); Carbon Dioxide 32 mmol/L (22-29); Chloride 86 mmol/L (96-108); Creatinine Clr Calc Pharmacy 75.3; Estimated Glomerular Filt Rate > 60; Glucose Random 129 mg/dL (60-115); Potassium 4.3 mmol/l (3.3-5.1); Sodium 124 mmol/L (135-145)
--- NOTE | 2020-10-24 11:38 | PC.NURSE ---
PROVIDER AT BEDSIDE FOR PRIMARY EVAL.
--- NOTE | 2020-10-24 12:07 | PM.IMHP ---
History of Present Illness Date of Service: 10/24/20 <Rosa Kay NP - Last Filed: 10/24/20 16:01> Chief Complaint: dizziness <Rosa Kay NP - Last Filed: 10/24/20 16:01> 84 year old women presenting from long term facility with dizziness and poor appetite. She has a history of interstitial lung disease and is on chronic prednisone. She was last admitted in September with pneumonitis and treated with antibiotics and steroids. She is on home oxygen. She denies fever, chills, vomiting or diarrhea. She was noted to have a low sodium of 124. CXR noted to with patchy opacities seen in the right lower lobe with extension along the right lateral chest wall into the apex likely combination of pleural thickening/effusion and right lower lobe consolidation/atelectasis. <Rosa Kay NP - Last Filed: 10/24/20 16:01> Review of Systems Review of Systems: Reprts decrease in appetite respiratory denies any shortness of breath as per her usual cardiovascular is adjustment of any PND or edema gastrointestinal See HPI genitourinary denies any dysuria frequency or hematuria musculoskeletal denies any joint pain or swelling neuropsych See HPI all other systems reviewed are negative <Rosa Kay NP - Last Filed: 10/24/20 16:01> [facility] Medical History: Medical History (Updated 10/24/20 @ 12:12 by Rosa Kay NP) Pneumonia Pulmonary fibrosis <Rosa Kay NP - Last Filed: 10/24/20 16:01> Social History: Social History Household Members: None Housing: Half-Way Alcohol intake: never Smoking Status: Former smoker Smoked in Last 30 Days: No Use of substances other than those prescribed or required for medical reasons: No Currently Displaying Signs/Symptoms of Drug Intoxication Withdrawal: No Advance Directives: No Advance Directives Information Provided: Yes Do you have thoughts of harming others: None service: No Current occupational status: retired <Rosa Kay NP - Last Filed: 10/24/20 16:01> Meds Allergies/Adverse reactions: Allergies Allergy/AdvReac Type Severity Reaction Status Date / Time Penicillins Allergy Rash Verified 10/01/20 14:47 <Rosa Kay NP - Last Filed: 10/24/20 16:01> Home medications: Home Medications Medication Instructions Recorded Confirmed Type Durezol 1 drp OPHTHALMIC-LEFT QID 10/01/20 10/24/20 History Multi-Day Plus Minerals 1 tab PO DAILY 10/01/20 10/24/20 History PreserVision AREDS-2 1 tab PO BID 10/01/20 10/24/20 History Rocklatan 1 drp OPHTHALMIC-RIGHT BEDTIME 10/01/20 10/24/20 History brimonidine [Alphagan P] 1 drp OPHTHALMIC-RIGHT BID 10/01/20 10/24/20 History fluticasone propionate 1 spray INTRANASAL DAILY 10/01/20 10/24/20 History gabapentin 100 mg PO BEDTIME 10/01/20 10/24/20 History melatonin 3 mg PO BEDTIME 10/01/20 10/24/20 History melatonin 3 mg PO BEDTIME PRN 10/01/20 10/24/20 History mirtazapine [Remeron] 30 mg PO BEDTIME 10/01/20 10/24/20 History pantoprazole [Protonix] 20 mg PO DAILY 10/01/20 10/24/20 History polyethylene glycol 3350 [Miralax] 17 g PO DAILY PRN 10/01/20 10/24/20 History prednisone 10 mg PO DAILY 10/01/20 10/24/20 History timolol 1 drp OPHTHALMIC-RIGHT BID 10/01/20 10/24/20 History trazodone 50 mg PO BEDTIME PRN 10/01/20 10/24/20 History Sodium Chloride Solution For TID 10/24/20 History Nebulizer 7% acetaminophen 650 mg PO Q4H PRN 10/24/20 10/24/20 History bisacodyl 10 mg [place] DAILY PRN 10/24/20 10/24/20 History guaifenesin [Mucinex] 600 mg PO BID 10/24/20 10/24/20 History sertraline [Zoloft] 25 mg PO DAILY 10/24/20 10/24/20 History simethicone 80 mg PO BID PRN 10/24/20 10/24/20 History sodium chloride [Saline Nasal] 1 spray INTRANASAL Q2H PRN 10/24/20 10/24/20 History Jemima Kay [employer] - Last Filed: 10/24/20 16:01> Physical Exam Vital Signs and Narrative: Vital Signs: Last Vital Signs Temp 99 F 10/24/20 09:37 Pulse 83 10/24/20 09:57 Resp 22 H 10/24/20 09:37 BP 100/71 10/24/20 09:37 Pulse Ox 96 10/24/20 09:37 Body Mass Index 21.9 <Rosa Kay NP - Last Filed: 10/24/20 16:01> Appearing in no acute distress head is normocephalic atraumatic eyes pupils are PERRLA sclera is anicteric mouth throat mucous membranes are intact and moist neck is supple no lymphadenopathy, no JVD noted lung sounds Coarse throughout more prominant to the right lobes heart regular rate rhythm, clear S1, S2 positive bowel sounds, abdomen is soft, nontender neuro patient is alert x3, no focal deficits <Rosa Kay NP - Last Filed: 10/24/20 16:01> Results Labs CBC and Chem 7: : 10/24/20 10:00 10/25/20 07:51 <Rosa Kay NP - Last Filed: 10/24/20 16:01> Labs: Laboratory Results - last 24 hr 10/24/20 10/24/20 10/24/20 10:00 10:00 10:00 MCV 84.7 MCH 28.2 MCHC 33.2 RDW 13.8 Plt Count 269 MPV 9.2 L Immature Gran % (Auto) 0.6 H Neut % (Auto) 82.0 H Lymph % (Auto) 10.0 L [place] % (Auto) 6.1 Eos % (Auto) 0.9 Baso % (Auto) 0.4 Lymph # (Auto) 1.2 [place] # (Auto) 0.7 Eos # (Auto) 0.1 Baso # (Auto) 0.1 Abs Immat Gran (auto) 0.07 H Absolute Neuts (auto) 9.5 H Absolute Nucleated RBC 0.000 Nucleated RBC % (auto) 0.0 Hold Blue Top SEE NOTE Anion Gap Estim Creat Clear Calc Estimated GFR Random Glucose Lactic Acid 1.1 Calcium Magnesium Troponin I High Sens B-Natriuretic Peptide COVID-19 (AMY) COVID-19 Clin Com 10/24/20 10/24/20 10/24/20 10:00 10:00 10:03 MCV MCH MCHC RDW Plt Count MPV Immature Gran % (Auto) Neut % (Auto) Lymph % (Auto) [place] % (Auto) Eos % (Auto) Baso % (Auto) Lymph # (Auto) [place] # (Auto) Eos # (Auto) Baso # (Auto) Abs Immat Gran (auto) Absolute Neuts (auto) Absolute Nucleated RBC Nucleated RBC % (auto) Hold Blue Top Anion Gap 10 L Estim Creat Clear Calc 75.3 Estimated GFR > 60 Random Glucose 129 H Lactic Acid Calcium 8.0 L Magnesium 2.0 Troponin I High Sens 15.7 B-Natriuretic Peptide 661 H COVID-19 (AMY) Negative COVID-19 Clin Com See Note <Rosa Kay NP - Last Filed: 10/24/20 16:01> Imaging Radiologist's Impressions: Impressions Chest X-Ray 10/24/20 09:42 IMPRESSION: Patchy opacities seen in the right lower lobe with extension along the right lateral chest wall into the apex likely combination of pleural thickening/effusion and right lower lobe consolidation/atelectasis. Bilateral increased reticular interstitial markings are again visualized in both lungs. Mild retraction of trachea and mediastinum to the right <Rosa Kay NP - Last Filed: 10/24/20 16:01> Assessment and Plan (1) Pulmonary fibrosis: Status: Acute <Rosa Kay NP - Last Filed: 10/24/20 16:01> (2) Hypoxia: Status: Acute <Rosa Kay NP - Last Filed: 10/24/20 16:01> (3) Acute hyponatremia: Status: Acute <Rosa Kay NP - Last Filed: 10/24/20 16:01> (4) Pneumonia: Qualifiers: Laterality: right Lung location: unspecified part of lung Pneumonia type: due to unspecified organism Qualified Code(s): J18.9 - Pneumonia, unspecified organism <Rosa Kay NP - Last Filed: 10/24/20 16:01> Status: Acute <Rosa Kay NP - Last Filed: 10/24/20 16:01> 84 year old women admitted with dizziness, FTT and exacerbation of ILD ILD. Chronically on steroids. Will continue steroids, pulmonology consultation. Chest CT showing some possible changes, will continue on Levaquin for now. Dizziness. Possibly related to dehydration. Given IV fluids. Hyponatremia. Likely from poor oral intake and dehydration. will recheck this afternoon after some fluids. Depression. Continue home medications. DVT prophylaxis with heparin Discussed with Dr. Waldrop. Full code <Rosa Kay NP - Last Filed: 10/24/20 16:01>
[2020-10-24] MEDS: vancomycin HCL 750 MG in 0.9 % Sodium Chloride 250 ML 265 MG IV (12:17)
[2020-10-24] MEDS: 0.9 % Sodium Chloride 500 ML 999 ML IV (12:18)
[2020-10-24 17:08] LABS: Anion Gap 11 (12-20); Blood Urea Nitrogen 13 mg/dL (9-16); Calcium 8.2 mg/dL (8.4-10.2); Carbon Dioxide 31 mmol/L (22-29); Chloride 88 mmol/L (96-108); Creatinine Clr Calc Pharmacy 72.7; Estimated Glomerular Filt Rate > 60; Glucose Random 147 mg/dL (60-115); Sodium 125 mmol/L (135-145)
--- NOTE | 2020-10-24 17:27 | PM.EVENT ---
Event Note Date of Service: 10/24/20 Event Note: 84-year-old female with I&D presented with worsening shortness of breath and dizziness found to be hypoxic patient seen and examined reported shortness of breath on exam alert abdomen soft CVS rate and rhythm regular lungs crackles admitted with acute on chronic hypoxic respiratory failure secondary to LD exacerbation, start on IV steroids oxygen supplementation supportive management, CT shows possible pneumonia Will start on IV antibiotic Patient seen and examined with the midlevel agree with H&P assessment and plan
[2020-10-24] MEDS: Gabapentin 100 MG CAPSULE PO (22:26)
[2020-10-24] MEDS: guaiFENesin LA 600 MG TAB.ER.12H PO (22:26)
[2020-10-24] MEDS: Mirtazapine 30 MG TABLET PO (22:26)
[2020-10-24] MEDS: Melatonin 3 MG TABLET PO (22:26)
[2020-10-24] MEDS: 0.9 % Sodium Chloride Flush 3 ML SYRINGE IVFLUSH (22:54)
[2020-10-25] VITALS (10 sets, daily range): BP systolic 95–161; BP diastolic 65–74; PULSE 80–106; RESP 15–19; TEMP 36–37; O2SAT 90–97
[2020-10-25] MEDS: Albuterol Sulfate (0.083%) 2.5 MG/3 ML VIAL.NEB INHALE ×3 (07:42→19:56)
[2020-10-25 08:56] LABS: Anion Gap 11 (12-20); Blood Urea Nitrogen 13 mg/dL (9-16); Calcium 8.3 mg/dL (8.4-10.2); Carbon Dioxide 31 mmol/L (22-29); Chloride 89 mmol/L (96-108); Creatinine Clr Calc Pharmacy 75.3; Estimated Glomerular Filt Rate > 60; Glucose Random 126 mg/dL (60-115); Potassium 5.2 mmol/l (3.3-5.1); Sodium 126 mmol/L (135-145)
[2020-10-25] MEDS: levoFLOXacin 500 MG TABLET PO (09:37)
[2020-10-25] MEDS: Simethicone 80 MG TAB.CHEW PO (09:37)
[2020-10-25] MEDS: Sertraline HCL 25 MG TABLET PO (09:37)
[2020-10-25] MEDS: guaiFENesin LA 600 MG TAB.ER.12H PO ×2 (09:37→20:28)
[2020-10-25] MEDS: 0.9 % Sodium Chloride Flush 3 ML SYRINGE IVFLUSH ×3 (09:46→23:43)
[2020-10-25] MEDS: Fluticasone Propionate Nasal 16 GM SPRAY 1 SPRAY NOSTRIL-B (09:48)
[2020-10-25] MEDS: timoloL maleate 0.5 % Oph Sol 5 ML DRBTL 1 DROP EYE-RIGHT ×2 (09:48→20:29)
[2020-10-25] MEDS: Brimonidine Tartrate 0.2% Oph 5 ML BOTTLE 1 DROP EYE-RIGHT ×2 (09:48→20:29)
--- NOTE | 2020-10-25 10:52 | MHC.CM.PN ---
PT REPORTS SHE RESIDES AT [facility] WHERE SHE IS ASSISTED WITH ALL ADL'S AND USES A WALKER TO AMBULATE AND IS OXYGEN DEPENDENT. PT HAS A HCP AND A MOLST ON FILE. PTS HCP IS HER DAUGHTER, JALEN ELLIOTT ([phone]) AND REPORTS HER PCP IS DR HURLEY AT [facility]. IMM DELIVERED CURRENT DC PLAN IS TO RETURN TO [facility] VIA S
--- NOTE | 2020-10-25 11:16 | PM.EVENT ---
Event Note Date of Service: 10/25/20 Event Note: I WAS US TO SEE THIS PATIENT FOR PULMONARY CONSULTATION. CASE IS REVIEWED INCLUDING CHEST X-RAY AND CT SCAN OF THE CHEST. PATIENT EXAMINED. LAB DATA IS REVIEWED. COMPLETE NOTE IS DICTATED. A: Chronic interstitial lung disease, severe. Super added acute pneumonitis. Possible healthcare associated pneumonia, cannot be ruled out especially in the right lower lobe. Chronic hypoxemic respiratory failure. P: Oxygen supplementation to keep O2 sat above 90% DuoNeb updrafts q.6 hours while awake and p.r.n.. Broad-spectrum antibiotic coverage as has been started. But if blood cultures come back negative I would DC vancomycin. IV Solu-Medrol, dose can be reduced to 40 mg b.i.d., for about 2 days and then convert to oral prednisone at 40 mg a day with slow taper. Prognosis is guarded. Code status should be rediscussed with the patient and her family.
--- NOTE | 2020-10-25 11:48 | P.PNIM_ITS ---
Subjective Subjective Date of Service: 10/25/20 Interval History: Patient seen and examined at bedside Still reporting shortness of breath Review of Systems Reprts decrease in appetite respiratory denies any shortness of breath as per her usual cardiovascular is adjustment of any PND or edema gastrointestinal See HPI genitourinary denies any dysuria frequency or hematuria musculoskeletal denies any joint pain or swelling neuropsych See HPI all other systems reviewed are negative Physical Exam Vital Signs: Vital Signs: Last Vital Signs Temp 98.1 F 10/25/20 07:58 Pulse 80 10/25/20 07:58 Resp 15 10/25/20 07:58 BP 161/74 H 10/25/20 07:58 Pulse Ox 97 10/25/20 07:58 Body Mass Index 21.9 Const: General: tired appearing Resp: Auscultation: rales Cardio: Jugular venous distension: no JVD GI: Inspection: Yes normal to inspection Objective Data Current Medications Generic Name Dose Route Start Last Admin Trade Name Freq PRN Reason Stop Dose Admin Acetaminophen 650 mg 10/24/20 12:05 Acetaminophen 325 Mg Tablet PO Q4H PRN Pain (Scale Score 1-3) Albuterol Sulfate 2.5 mg 10/24/20 16:00 10/25/20 11:36 Albuterol Sulfate (0.083%) 2.5 Mg/3 Ml Vial.Neb INHALE Not Given RQ4H WHILE AWAKE LAURI Bisacodyl 10 mg 10/24/20 12:05 Bisacodyl 10 Mg Supp.Rect DC DAILY PRN Constipation Brimonidine Tartrate 1 drop 10/24/20 21:00 10/25/20 09:48 Brimonidine Tartrate 0.2% Oph 5 Ml Bottle EYE-RIGHT 1 drop BID LAURI Administration Fluticasone Propionate 1 spray 10/25/20 09:00 10/25/20 09:48 Fluticasone Propionate Nasal 16 Gm [place] NOSTRIL-B 1 spray DAILY LAURI Administration Gabapentin 100 mg 10/24/20 21:00 10/24/20 22:26 Gabapentin 100 Mg Capsule PO 100 mg BEDTIME LAURI Administration Guaifenesin 600 mg 10/24/20 21:00 10/25/20 09:37 Guaifenesin La 600 Mg Tab.Er.12h PO 600 mg BID LAURI Administration Levofloxacin 500 mg 10/25/20 10:00 10/25/20 09:37 Levofloxacin 500 Mg Tablet PO 500 mg Q24H LAURI Administration Melatonin 3 mg 10/24/20 21:00 10/24/20 22:26 Melatonin 3 Mg Tablet PO 3 mg BEDTIME LAURI Administration Methylprednisolone Sodium Succinate 60 mg 10/24/20 12:15 10/24/20 22:53 Methylprednisolone Sod Succ/Pf 125 Mg/2 Ml Vial IVPUSH 60 mg Q12H LAURI Administration Mirtazapine 30 mg 10/24/20 21:00 10/24/20 22:26 Mirtazapine 30 Mg Tablet PO 30 mg BEDTIME LAURI Administration Non-Formulary Medication 1 drop 10/24/20 13:00 Difluprednate [Durezol] EYE-LEFT QID LAURI Non-Formulary Medication 1 drop 10/24/20 21:00 Netarsudil-Latanoprost [Rocklatan] EYE-RIGHT BEDTIME LAURI Non-Formulary Medication 1 tab 10/24/20 21:00 Vit C,M-Zl-Muwsy-Lutein-Zeaxan [Preservision Areds-2] PO BID [facility] Pharmacy Consult 1 each 10/24/20 09:41 Consult Rx Perform Med Rec MISCELLANE ONCE PRN Consult order Pharmacy Consult 1 each 10/24/20 11:30 Consult Rx Vancomycin Dosing MISCELLANE DAILY PRN Consult order Polyethylene Glycol 17 gm 10/24/20 12:05 Polyethylene Glycol 3350 17 Gm Powd.Pack PO DAILY PRN Constipation Sertraline HCl 25 mg 10/25/20 09:00 10/25/20 09:37 Sertraline Hcl 25 Mg Tablet PO 25 mg DAILY LAURI Administration Simethicone 80 mg 10/24/20 12:05 10/25/20 09:37 Simethicone 80 Mg Tab.Chew PO 80 mg BID PRN Administration GI UPSET Sodium Chloride 3 ml 10/24/20 16:00 10/25/20 09:46 0.9 % Sodium Chloride Flush 3 Ml Syringe IVFLUSH 3 ml QSHIFT LAURI Administration Sodium Chloride 1 spray 10/24/20 12:05 Sodium Chloride 0.65 % Nasal 44 Ml Sprbtl NOSTRIL-B Q2H PRN Dry Nasal Passages Timolol Maleate 1 drop 10/24/20 21:00 10/25/20 09:48 Timolol Maleate 0.5 % Oph Gregoria 5 Ml Drbtl EYE-RIGHT 1 drop BID LAURI Administration Trazodone HCl 50 mg 10/24/20 12:05 Trazodone Hcl 50 Mg Tablet PO BEDTIME PRN IF MELATONIN NOT EFFECTIVE Vancomycin HCl 750 mg 10/25/20 00:00 10/24/20 22:53 Vancomycin Hcl 750 Mg/15 Ml Vial IV 750 mg Q12H LAURI Administration Labs CBC & Chem 7: 10/24/20 10:00 10/25/20 07:51 Assessment and Plan (1) Pulmonary fibrosis: Status: Acute (2) Hypoxia: Status: Acute (3) Acute hyponatremia: Status: Acute (4) Pneumonia: Status: Acute Assessment and Plan: 84 year old women admitted with dizziness, FTT and exacerbation of ILD Acute on chronic ILD exacerbation Acute on chronic hypoxic respiratory failure continue steroids Continue Levaquin Pulmonology consult Continue oxygen supplementation Mild hyperkalemia Potassium 5.2 today Monitor potassium Dizziness. Possibly related to dehydration. Received fluids Hyponatremia improving Monitor sodium level Depression. Continue home medications. DVT prophylaxis with heparin
[2020-10-25] MEDS: methylPREDNISolone Sod Succ/PF 125 MG/2 ML VIAL 60 MG IVPUSH ×2 (13:05→23:42)
[2020-10-25] MEDS: Gabapentin 100 MG CAPSULE PO (20:28)
[2020-10-25] MEDS: Melatonin 3 MG TABLET PO (20:28)
[2020-10-25] MEDS: Mirtazapine 30 MG TABLET PO (20:28)
[2020-10-25] MEDS: Acetaminophen 325 MG TABLET 650 MG PO (23:56)
--- NOTE | 2020-10-26 | PC.NURSE ---
P-CNAreported patient is having difficulty breathing I-repositioned patient,encouraged deep breathing and coughing,RT called into patient room for assistance E-patient able to cough up med amt of sputum,sat 93% on 6 L via N/C,will monitor
[2020-10-26 03:14] VITALS: BP 99/66; PULSE 97; RESP 18; TEMP 36.4; O2SAT 96
[2020-10-26 06:56] LABS: Anion Gap 11 (12-20); Blood Urea Nitrogen 17 mg/dL (9-16); Calcium 8.5 mg/dL (8.4-10.2); Carbon Dioxide 34 mmol/L (22-29); Chloride 93 mmol/L (96-108); Creatinine Clr Calc Pharmacy 71.4; Estimated Glomerular Filt Rate > 60; Glucose Random 135 mg/dL (60-115); Potassium 5.2 mmol/l (3.3-5.1); Sodium 133 mmol/L (135-145)
[2020-10-26 08:16] VITALS: BP 99/54; PULSE 95; RESP 22; TEMP 36.8; O2SAT 96
[2020-10-26] MEDS: 0.9 % Sodium Chloride Flush 3 ML SYRINGE IVFLUSH ×2 (10:12→16:25)
[2020-10-26] MEDS: guaiFENesin LA 600 MG TAB.ER.12H PO ×2 (10:12→20:22)
[2020-10-26] MEDS: levoFLOXacin 500 MG TABLET PO (10:12)
[2020-10-26] MEDS: Sertraline HCL 25 MG TABLET PO (10:12)
[2020-10-26] MEDS: Brimonidine Tartrate 0.2% Oph 5 ML BOTTLE 1 DROP EYE-RIGHT ×2 (10:13→20:24)
[2020-10-26] MEDS: Fluticasone Propionate Nasal 16 GM SPRAY 1 SPRAY NOSTRIL-B (10:13)
[2020-10-26] MEDS: timoloL maleate 0.5 % Oph Sol 5 ML DRBTL 1 DROP EYE-RIGHT ×2 (10:13→20:24)
--- NOTE | 2020-10-26 10:43 | P.DS_ITS ---
DS: Providers Provider Date of Service: 10/27/20 Date of admission: 10/24/20 12:05 Primary care physician: Unknown Physician Consults: 10/24/20 22:16 Consult to Pulmonology Routine Consulting Provider: Ngozi Talley Reason for consultation: ILD, HYPOXIA Has provider been notified: No DS: Diagnosis Discharge Diagnosis (1) Pulmonary fibrosis: Status: Acute (2) Hypoxia: Status: Acute (3) Acute hyponatremia: Status: Acute (4) Pneumonia: Status: Acute DS: Medications Discharge Medications Home Medications: Home Medications Medication Instructions Recorded Confirmed Durezol 1 drp OPHTHALMIC-LEFT QID 10/01/20 10/24/20 Multi-Day Plus Minerals 1 tab PO DAILY 10/01/20 10/24/20 PreserVision AREDS-2 1 tab PO BID 10/01/20 10/24/20 Rocklatan 1 drp OPHTHALMIC-RIGHT BEDTIME 10/01/20 10/24/20 brimonidine [Alphagan P] 1 drp OPHTHALMIC-RIGHT BID 10/01/20 10/24/20 fluticasone propionate 1 spray INTRANASAL DAILY 10/01/20 10/24/20 gabapentin 100 mg PO BEDTIME 10/01/20 10/24/20 melatonin 3 mg PO BEDTIME 10/01/20 10/24/20 melatonin 3 mg PO BEDTIME PRN 10/01/20 10/24/20 mirtazapine [Remeron] 30 mg PO BEDTIME 10/01/20 10/24/20 pantoprazole [Protonix] 20 mg PO DAILY 10/01/20 10/24/20 polyethylene glycol 3350 [Miralax] 17 g PO DAILY PRN 10/01/20 10/24/20 prednisone 10 mg PO DAILY 10/01/20 10/24/20 timolol 1 drp OPHTHALMIC-RIGHT BID 10/01/20 10/24/20 trazodone 50 mg PO BEDTIME PRN 10/01/20 10/24/20 Sodium Chloride Solution For TID 10/24/20 Nebulizer 7% acetaminophen 650 mg PO Q4H PRN 10/24/20 10/24/20 bisacodyl 10 mg [place] DAILY PRN 10/24/20 10/24/20 guaifenesin [Mucinex] 600 mg PO BID 10/24/20 10/24/20 sertraline [Zoloft] 25 mg PO DAILY 10/24/20 10/24/20 simethicone 80 mg PO BID PRN 10/24/20 10/24/20 sodium chloride [Saline Nasal] 1 spray INTRANASAL Q2H PRN 10/24/20 10/24/20 Previous Rx's Medication Instructions Recorded levofloxacin 500 mg PO Q24H #5 tab 10/26/20 prednisone 40 mg PO BID #60 tab 10/26/20 DS: Summary Hospital Course Hospital Course: HPI 84 year old women presenting from [facility] facility with dizziness and poor appetite. She has a history of interstitial lung disease and is on chronic prednisone. She was last admitted in September with pneumonitis and treated with antibiotics and steroids. She is on home oxygen. She denies fever, chills, vomiting or diarrhea. She was noted to have a low sodium of 124. CXR noted to with patchy opacities seen in the right lower lobe with extension along the right lateral chest wall into the apex likely combination of pleural thickening/effusion and right lower lobe consolidation/atelectasis. Hospital course 84-year-old female admitted with acute on chronic hypoxic respiratory failure secondary to interstitial lung disease patient was started on IV steroids and antibiotic, cultures remain negative, shortness of breath improved, patient was stable discharged back to facility on long tapering dose of steroid, patient will continue 6 L of oxygen on discharge. Time Spent with Patient Time attestation: Total time spent providing and/or coordinating discharge services: Discharge coordination time: Greater than 30 minutes Physical Exam Vital Signs: Vital Signs: Last Vital Signs Temp 98.2 F 10/26/20 08:16 Pulse 95 10/26/20 08:16 Resp 22 H 10/26/20 08:16 BP 99/54 L 10/26/20 08:16 Pulse Ox 96 10/26/20 08:16 Body Mass Index 21.9 Const: General: tired appearing Resp: Auscultation: rales Cardio: Jugular venous distension: no JVD GI: Inspection: Yes normal to inspection DS: Data Data Completed and Pending Labs on day of discharge: Laboratory Tests 10/24/20 10/24/20 10/24/20 10:00 10:00 10:00 WBC 11.6 H RBC 4.44 Hgb 12.5 Hct 37.6 MCV 84.7 MCH 28.2 MCHC 33.2 RDW 13.8 Plt Count 269 MPV 9.2 L Immature Gran % (Auto) 0.6 H Neut % (Auto) 82.0 H Lymph % (Auto) 10.0 L [place] % (Auto) 6.1 Eos % (Auto) 0.9 Baso % (Auto) 0.4 Lymph # (Auto) 1.2 [place] # (Auto) 0.7 Eos # (Auto) 0.1 Baso # (Auto) 0.1 Abs Immat Gran (auto) 0.07 H Absolute Neuts (auto) 9.5 H Absolute Nucleated RBC 0.000 Nucleated RBC % (auto) 0.0 Hold Blue Top SEE NOTE Sodium Potassium Chloride Carbon Dioxide Anion Gap BUN Creatinine Estim Creat Clear Calc Estimated GFR Random Glucose Lactic Acid 1.1 Calcium Magnesium Troponin I High Sens B-Natriuretic Peptide COVID-19 (AMY) COVID-19 [employer] 10/24/20 10/24/20 10/24/20 10:00 10:00 10:03 WBC RBC Hgb Hct MCV MCH MCHC RDW Plt Count MPV Immature Gran % (Auto) Neut % (Auto) Lymph % (Auto) [place] % (Auto) Eos % (Auto) Baso % (Auto) Lymph # (Auto) [place] # (Auto) Eos # (Auto) Baso # (Auto) Abs Immat Gran (auto) Absolute Neuts (auto) Absolute Nucleated RBC Nucleated RBC % (auto) Hold Blue Top Sodium 124 L Potassium 4.3 Chloride 86 L Carbon Dioxide 32 H Anion Gap 10 L BUN 13 Creatinine 0.55 Estim Creat Clear Calc 75.3 Estimated GFR > 60 Random Glucose 129 H Lactic Acid Calcium 8.0 L Magnesium 2.0 Troponin I High Sens 15.7 B-Natriuretic Peptide 661 H COVID-19 (AMY) Negative COVID-19 [employer] See Note 10/24/20 10/25/20 10/26/20 16:36 07:51 05:44 WBC RBC Hgb Hct MCV MCH MCHC RDW Plt Count MPV Immature Gran % (Auto) Neut % (Auto) Lymph % (Auto) [place] % (Auto) Eos % (Auto) Baso % (Auto) Lymph # (Auto) [place] # (Auto) Eos # (Auto) Baso # (Auto) Abs Immat Gran (auto) Absolute Neuts (auto) Absolute Nucleated RBC Nucleated RBC % (auto) Hold Blue Top Sodium 125 L 126 L 133 L Potassium 5.0 5.2 H 5.2 H Chloride 88 L 89 L 93 L Carbon Dioxide 31 H 31 H 34 H Anion Gap 11 L 11 L 11 L BUN 13 13 17 H Creatinine 0.57 0.55 0.58 Estim Creat Clear Calc 72.7 75.3 71.4 Estimated GFR > 60 > 60 > 60 Random Glucose 147 H 126 H 135 H Lactic Acid Calcium 8.2 L 8.3 L 8.5 Magnesium Troponin I High Sens B-Natriuretic Peptide COVID-19 (AMY) COVID-19 Clin Com Preliminary micro results at discharge 10/24/20 10:10 Blood Culture - Preliminary Blood - Venous No growth after 24 hours. 10/24/20 10:00 Blood Culture - Preliminary Blood - Venous No growth after 24 hours. Discharge Plan Discharge Anticipated Discharge Date/Time: 10/27/20 13:43 Patient Disposition: Xfer LTC Referrals: [facility] [Outside] Physician,Unknown [Primary Care Provider] - Discharge Medications: New levofloxacin 500 mg Tablet 500 mg PO Q24H Qty: 5 RF: 0 prednisone 20 mg tablet 40 mg PO BID Qty: 60 RF: 0 Continued acetaminophen 325 mg Tablet 650 mg PO Q4H PRN (Reason: Pain (Scale Score 1-3)) RF: 0 bisacodyl 10 mg Suppository 10 mg [place] DAILY PRN (Reason: Constipation) RF: 0 guaifenesin [Mucinex] 600 mg Tablet Extended Release 12hr 600 mg PO BID RF: 0 sodium chloride [Saline Nasal] 0.65 % Aerosol,[place] 1 spray INTRANASAL Q2H PRN (Reason: Dry Nasal Passages) RF: 0 simethicone 80 mg Tablet,Chewable 80 mg PO BID PRN (Reason: GI UPSET) RF: 0 Sodium Chloride Solution For Nebulizer 7% TID RF: 0 sertraline [Zoloft] 25 mg Tablet 25 mg PO DAILY RF: 0 prednisone 10 mg Tablet 10 mg PO DAILY RF: 0 polyethylene glycol 3350 [Miralax] 17 gram Powder In Packet 17 g PO DAILY PRN (Reason: Constipation) RF: 0 pantoprazole [Protonix] 20 mg Tablet,Delayed Release (Dr/Ec) 20 mg PO DAILY RF: 0 PreserVision AREDS-2 [id number] Capsule 1 tab PO BID RF: 0 Multi-Day Plus Minerals 18 mg iron-400 mcg-25 mcg Tablet 1 tab PO DAILY RF: 0 trazodone 50 mg Tablet 50 mg PO BEDTIME PRN (Reason: IF MELATONIN NOT EFFECTIVE) RF: 0 melatonin 3 mg Tablet 3 mg PO BEDTIME PRN (Reason: IF FIRST DOSE INEFFECTIVE) RF: 0 melatonin 3 mg Tablet 3 mg PO BEDTIME RF: 0 timolol 0.5 % Drops 1 drp ophthalmic-Right BID RF: 0 mirtazapine [Remeron] 30 mg Tablet 30 mg PO BEDTIME RF: 0 gabapentin 100 mg Capsule 100 mg PO BEDTIME RF: 0 fluticasone propionate 50 mcg/actuation [place],Suspension 1 spray INTRANASAL DAILY RF: 0 brimonidine [Alphagan P] 0.15 % Drops 1 drp ophthalmic-Right BID RF: 0 Durezol 0.05 % Drops 1 drp ophthalmic-Left QID RF: 0 Rocklatan 0.02-0.005 % Drops 1 drp ophthalmic-Right BEDTIME RF: 0 Discharge Orders: Discharge Order (Routine); Ordered 10/27/20 Ordered By: Rakesh Waldrop Activity on Discharge: As tolerated Visit Report Forms: Patient Portal Discharge page Care Plan Goals: prevent hospitalization Health Concerns: hypoxia Plan of Treatment: see above
[2020-10-26] MEDS: Albuterol Sulfate (0.083%) 2.5 MG/3 ML VIAL.NEB INHALE ×2 (11:10→15:17)
[2020-10-26 11:52] VITALS: BP 95/60; PULSE 88; RESP 21; TEMP 36.7; O2SAT 91
[2020-10-26 11:55] LABS: Vancomycin Trough 9.8 mcg/mL (10.0-20.0)
[2020-10-26 12:27] LABS: COVID-19 Test Negative (Negative)
--- NOTE | 2020-10-26 13:10 | MHC.CM.PN ---
Cm informed pts DC being held. [facility] and [facility] notified via [employer]
[2020-10-26] MEDS: vancomycin HCL 1,000 MG in 0.9 % Sodium Chloride 250 ML 270 MG IV (13:41)
[2020-10-26] MEDS: methylPREDNISolone Sod Succ/PF 125 MG/2 ML VIAL 60 MG IVPUSH (13:42)
--- NOTE | 2020-10-26 14:08 | P.PNIM_ITS ---
Subjective Subjective Date of Service: 10/26/20 Interval History: Patient seen and examined at bedside Still reporting shortness of breath Review of Systems Reprts decrease in appetite respiratory denies any shortness of breath as per her usual cardiovascular is adjustment of any PND or edema gastrointestinal See HPI genitourinary denies any dysuria frequency or hematuria musculoskeletal denies any joint pain or swelling neuropsych See HPI all other systems reviewed are negative Physical Exam Vital Signs: Vital Signs: Last Vital Signs Temp 98.0 F 10/26/20 11:52 Pulse 88 10/26/20 11:52 Resp 21 H 10/26/20 11:52 BP 95/60 10/26/20 11:52 Pulse Ox 91 L 10/26/20 11:52 Body Mass Index 21.9 Const: General: tired appearing Resp: Auscultation: rales Cardio: Jugular venous distension: no JVD GI: Inspection: Yes normal to inspection Objective Data Current Medications Generic Name Dose Route Start Last Admin Trade Name Freq PRN Reason Stop Dose Admin Acetaminophen 650 mg 10/24/20 12:05 10/25/20 23:56 Acetaminophen 325 Mg Tablet PO 650 mg Q4H PRN Administration Pain (Scale Score 1-3) Albuterol Sulfate 2.5 mg 10/24/20 16:00 10/26/20 11:10 Albuterol Sulfate (0.083%) 2.5 Mg/3 Ml Vial.Neb INHALE 2.5 mg RQ4H WHILE AWAKE LAURI Administration Bisacodyl 10 mg 10/24/20 12:05 Bisacodyl 10 Mg Supp.Rect ME DAILY PRN Constipation Brimonidine Tartrate 1 drop 10/24/20 21:00 10/26/20 10:13 Brimonidine Tartrate 0.2% Oph 5 Ml Bottle EYE-RIGHT 1 drop BID LAURI Administration Fluticasone Propionate 1 spray 10/25/20 09:00 10/26/20 10:13 Fluticasone Propionate Nasal 16 Gm [place] NOSTRIL-B 1 spray DAILY LAURI Administration Gabapentin 100 mg 10/24/20 21:00 10/25/20 20:28 Gabapentin 100 Mg Capsule PO 100 mg BEDTIME LAURI Administration Guaifenesin 600 mg 10/24/20 21:00 10/26/20 10:12 Guaifenesin La 600 Mg Tab.Er.12h PO 600 mg BID LAURI Administration Vancomycin HCl 1,000 mg/ 270 mls @ 270 mls/hr 10/26/20 13:00 10/26/20 13:41 Sodium Chloride IV 270 mls/hr Q12H LAURI Administration Levofloxacin 500 mg 10/25/20 10:00 10/26/20 10:12 Levofloxacin 500 Mg Tablet PO 500 mg Q24H LAURI Administration Melatonin 3 mg 10/24/20 21:00 10/25/20 20:28 Melatonin 3 Mg Tablet PO 3 mg BEDTIME LAURI Administration Methylprednisolone Sodium Succinate 60 mg 10/24/20 12:15 10/26/20 13:42 Methylprednisolone Sod Succ/Pf 125 Mg/2 Ml Vial IVPUSH 60 mg Q12H LAURI Administration Mirtazapine 30 mg 10/24/20 21:00 10/25/20 20:28 Mirtazapine 30 Mg Tablet PO 30 mg BEDTIME LAURI Administration Non-Formulary Medication 1 drop 10/24/20 13:00 Difluprednate [Durezol] EYE-LEFT QID LAURI Non-Formulary Medication 1 drop 10/24/20 21:00 Netarsudil-Latanoprost [Rocklatan] EYE-RIGHT BEDTIME LAURI Non-Formulary Medication 1 tab 10/24/20 21:00 Vit C,E-Cy-Ivzai-Lutein-Zeaxan [Preservision Areds-2] PO BID [facility] Pharmacy Consult 1 each 10/24/20 09:41 Consult Rx Perform Med Rec MISCELLANE ONCE PRN Consult order Pharmacy Consult 1 each 10/24/20 11:30 Consult Rx Vancomycin Dosing MISCELLANE DAILY PRN Consult order Polyethylene Glycol 17 gm 10/24/20 12:05 Polyethylene Glycol 3350 17 Gm Powd.Pack PO DAILY PRN Constipation Sertraline HCl 25 mg 10/25/20 09:00 10/26/20 10:12 Sertraline Hcl 25 Mg Tablet PO 25 mg DAILY LAURI Administration Simethicone 80 mg 10/24/20 12:05 10/25/20 09:37 Simethicone 80 Mg Tab.Chew PO 80 mg BID PRN Administration GI UPSET Sodium Chloride 3 ml 10/24/20 16:00 10/26/20 10:12 0.9 % Sodium Chloride Flush 3 Ml Syringe IVFLUSH 3 ml QSHIFT LAURI Administration Sodium Chloride 1 spray 10/24/20 12:05 Sodium Chloride 0.65 % Nasal 44 Ml Sprbtl NOSTRIL-B Q2H PRN Dry Nasal Passages Timolol Maleate 1 drop 10/24/20 21:00 10/26/20 10:13 Timolol Maleate 0.5 % Oph Gregoria 5 Ml Drbtl EYE-RIGHT 1 drop BID LAURI Administration Trazodone HCl 50 mg 10/24/20 12:05 Trazodone Hcl 50 Mg Tablet PO BEDTIME PRN IF MELATONIN NOT EFFECTIVE Labs CBC & Chem 7: 10/24/20 10:00 10/26/20 05:44 Microbiology Microbiology Results: Microbiology 10/24/20 10:10 Blood - Venous Blood Culture - Preliminary No growth after 48 hours. 10/24/20 10:00 Blood - Venous Blood Culture - Preliminary No growth after 48 hours. Assessment and Plan (1) Pulmonary fibrosis: Status: Acute (2) Hypoxia: Status: Acute (3) Acute hyponatremia: Status: Acute (4) Pneumonia: Status: Acute Assessment and Plan: 84 year old women admitted with dizziness, FTT and exacerbation of ILD Acute on chronic ILD exacerbation Acute on chronic hypoxic respiratory failure continue i/v steroids Continue Levaquin Pulmonology consulted recommended supportive management Continue oxygen supplementation Mild hyperkalemia Potassium 5.2 today Monitor potassium Dizziness. Possibly related to dehydration. Received fluids Hyponatremia improving Monitor sodium level Depression. Continue home medications. DVT prophylaxis with heparin
[2020-10-26] MEDS: Sodium Polystyrene Sulfon/Sorb 15 GM/60 ML ORAL.SUSP PO (14:27)
[2020-10-26 15:09] VITALS: BP 110/75; PULSE 86; RESP 24; TEMP 36.4; O2SAT 96
[2020-10-26 19:13] VITALS: BP 113/75; PULSE 90; RESP 18; TEMP 36.5; O2SAT 95
[2020-10-26] MEDS: Melatonin 3 MG TABLET PO (20:22)
[2020-10-26] MEDS: Gabapentin 100 MG CAPSULE PO (20:22)
[2020-10-26] MEDS: Mirtazapine 30 MG TABLET PO (20:23)
[2020-10-26] MEDS: Acetaminophen 325 MG TABLET 650 MG PO (22:01)
[2020-10-26 23:30] VITALS: BP 140/93; PULSE 98; RESP 19; TEMP 36.7; O2SAT 92
[2020-10-27] MEDS: methylPREDNISolone Sod Succ/PF 125 MG/2 ML VIAL 60 MG IVPUSH ×2 (00:57→10:39)
[2020-10-27] MEDS: 0.9 % Sodium Chloride Flush 3 ML SYRINGE IVFLUSH ×2 (00:59→07:45)
[2020-10-27] MEDS: vancomycin HCL 1,000 MG in 0.9 % Sodium Chloride 250 ML 270 MG IV ×2 (01:01→13:15)
[2020-10-27 03:34] VITALS: BP 139/68; PULSE 70; RESP 19; TEMP 36.8; O2SAT 94
[2020-10-27 05:31] LABS: Anion Gap 12 (12-20); Blood Urea Nitrogen 16 mg/dL (9-16); Calcium 8.3 mg/dL (8.4-10.2); Carbon Dioxide 33 mmol/L (22-29); Chloride 92 mmol/L (96-108); Creatinine Clr Calc Pharmacy 79.6; Estimated Glomerular Filt Rate > 60; Glucose Random 119 mg/dL (60-115); Potassium 4.4 mmol/l (3.3-5.1); Sodium 133 mmol/L (135-145)
[2020-10-27 07:07] VITALS: BP 108/67; PULSE 96; RESP 18; TEMP 36.6; O2SAT 93
[2020-10-27] MEDS: Sertraline HCL 25 MG TABLET PO (07:45)
[2020-10-27] MEDS: guaiFENesin LA 600 MG TAB.ER.12H PO (07:45)
[2020-10-27] MEDS: timoloL maleate 0.5 % Oph Sol 5 ML DRBTL 1 DROP EYE-RIGHT (07:46)
[2020-10-27] MEDS: Fluticasone Propionate Nasal 16 GM SPRAY 1 SPRAY NOSTRIL-B (07:46)
[2020-10-27] MEDS: Brimonidine Tartrate 0.2% Oph 5 ML BOTTLE 1 DROP EYE-RIGHT (07:46)
[2020-10-27] MEDS: levoFLOXacin 500 MG TABLET PO (10:40)
[2020-10-27] MEDS: LORazepam 0.5 MG TABLET 0.25 MG PO (10:40)
[2020-10-27] MEDS: Albuterol Sulfate (0.083%) 2.5 MG/3 ML VIAL.NEB INHALE ×2 (11:18→15:44)
[2020-10-27 11:20] VITALS: PULSE 92; O2SAT 93
[2020-10-27 11:48] VITALS: BP 95/60; PULSE 88; RESP 18; TEMP 36.8; O2SAT 94
--- NOTE | 2020-10-27 13:18 | CONS_ITS ---
DATE OF SERVICE: 10/25/2020 HISTORY OF PRESENT ILLNESS: This 84 years old very pleasant female is here because of marked generalized weakness and feeling dizzy and with increased shortness of breath. No fever or chills are reported. The patient was here in the hospital about 3 weeks ago with acute respiratory failure due to extensive interstitial lung disease. Since then, she has been in a long-term facility. The patient is on oxygen 4 L/minute continuously, and she remains on steroids 10 mg daily as a maintenance dose. More details of her past medical history are given in the previous records. REVIEW OF SYSTEMS: Basically, she remains short of breath and very weak. She is mostly in the recliner to bed. Cardiovascular alegria, she denies chest pain, pitting edema, or orthopnea. Denies any genitourinary symptoms. Denies nausea or vomiting, Denies any back pain or joint pain, but she remains very weak and unable to stand and walk. PHYSICAL EXAMINATION: GENERAL: An 84-year-old female, thin build, chronically sick-looking. VITAL SIGNS: Moderately dyspneic at this time on oxygen 4 L/minute and respiratory rate is 20, not labored. HEENT: Throat is clear. No acute infection noted in the oropharynx. NECK: No jugular venous distention. Trachea in midline. No thyromegaly. CARDIOVASCULAR: PMI in fifth intercostal space at midclavicular line. Heart sounds are normal. No murmurs or gallops. RESPIRATORY: The patient has good breath sounds on both sides. There are coarse crepitations over the mid chest and lower lobes on both sides. No wheezes are heard. ABDOMEN: Flat, soft, and nontender. EXTREMITIES: No edema or varicosities. DIAGNOSTIC DATA: Chest x-ray, both lungs are expanded. She has patchy opacities more marked over the right lower lobe and along the periphery of the right lung. CT scan of the chest shows extensive interstitial changes on both sides, suggestive of chronic interstitial lung disease with superadded acute pneumonitis. There is more late consolidation in the right lower lobe and thus an acute pneumonia cannot be ruled out. LABORATORY DATA: The blood cultures are pending. White cell count is 11.6, hemoglobin 12.5, and neutrophils are 82, which is slightly increased. COVID-19 test is negative. CLINICAL IMPRESSION: 1. Extensive chronic interstitial lung disease. 2. Possible superadded acute pneumonitis. 3. Healthcare-associated pneumonia cannot be ruled out, especially in the right lower lobe. 4. Chronic respiratory failure with hypoxemia due to above described conditions. RECOMMENDATIONS: Agree with IV Solu-Medrol for a few days and then she should be on prednisone with gradual taper. Oxygen supplementation 2 to 4 L/minute as needed to keep O2 saturation above 90%. DuoNeb updrafts q.6 hours while awake. Broad-spectrum antibiotic coverage with vancomycin and Levaquin has been started. If the blood cultures come back negative, I would suggest to discontinue vancomycin. Overall the prognosis is poor and the patient is most likely going to have progressive interstitial disease and increasing amount of respiratory failure. The patient is described to be a full code patient, and this needs to be discussed with the patient and family. Thank you very much for asking me to see this patient. MD CATALINA Diaz/SANDEEP / [phone]
--- NOTE | 2020-10-27 13:59 | MHC.CM.PN ---
PATIENT WILL RETURN TO [facility] FOR 16:00 [facility]. RN, UNIT, PATIENT, AND DAUGHTER (JALEN [phone]) AWARE OF PLAN.
[2020-10-27 15:44] VITALS: PULSE 94; O2SAT 95
== END 2020-10-27 16:05 | DRG 193 ==
LOC: HO.ED 11:06 → HO.EDOVER 12:15 → HO.S3 16:12
PROVIDERS: Nurse Practitioner Acute Care; Admitting Provider Family Medicine; Emergency Provider Emergency Medicine; Visit Provider Internal Medicine
DX: J18.9 Pneumonia, unspecified organism (principal); J96.21 Acute and chronic respiratory failure with hypoxia; E87.1 Hypo-osmolality and hyponatremia; E87.5 Hyperkalemia; F32.9 Major depressive disorder, single episode, unspecified; J84.10 Pulmonary fibrosis, unspecified; Z20.822 Contact with and (suspected) exposure to COVID-19; Z99.81 Dependence on supplemental oxygen; Z79.51 Long term (current) use of inhaled steroids; Z79.52 Long term (current) use of systemic steroids; Z79.899 Other long term (current) drug therapy
CPT/HCPCS: 36415; 71045; 71250; 80048; 80202; 83605; 83735; 83880; 84484; 85025; 87040; 87635; 93005; 94640; 96361; 96365; 96375; 99285; J1956; J2405; J2920; J2930; J3370